=== PATIENT | female | born 1995 | race Caucasian/White ===

== ENCOUNTER 2020-04-30 23:34 | Emergency (ER) | payer OTHER, SELFPAY ==
[2020-04-30 23:39] VITALS: BP 152/81; PULSE 104; RESP 20; TEMP 36.7; O2SAT 100
[2020-05-01] VITALS: O2SAT 98
[2020-05-01 00:44] VITALS: BP 114/55; PULSE 74; RESP 18; O2SAT 100
[2020-05-01] MEDS: IPRATROPIUM BR 0.02% INH SOLN 0.5 MG/2.5 ML VIAL INHALATION (00:45)
[2020-05-01] MEDS: ALBUTEROL SULFATE NEB 2.5 MG/0.5 ML INH 5 MG INHALATION (00:45)
[2020-05-01 00:46] VITALS: PULSE 77; RESP 20
[2020-05-01 00:50] VITALS: PULSE 77; RESP 20
[2020-05-01 01:40] VITALS: BP 116/58; PULSE 88; RESP 12; O2SAT 100
--- NOTE | 2020-05-01 02:07 | ED.ASTHMA ---
HPI - Asthma General Chief Complaint: Asthma Stated Complaint: SOB/Asthma Time Seen by Provider: 05/01/20 00:14 History of Present Illness HPI Narrative: Patient is a 25-year-old female who presents the ER with shortness of breath. Has history of asthma. [place] like her asthma was flaring earlier and she yourself some breathing treatments. Did not fully resolve and she still feels tightness in her central chest. No fevers or chills or sweats. No lower extremity swelling. Patient is 12 weeks . Related Data Allergies Allergy/AdvReac Type Severity Reaction Status Date / Time No Known Allergies Allergy Verified 04/30/20 23:43 Review of Systems Constitutional: Constitutional: Denies chills, Denies fever(s) and Denies weakness ENT: Denies nasal congestion and Denies sore throat Cardiovascular: Cardiovascular: Reports chest pain, Denies rapid heart rate and Denies radiating jaw, neck or arm pain Respiratory: Respiratory: Denies chest congestion, Denies cough, Reports dyspnea and Reports wheezing Genitourinary: Genitourinary: Denies abnormal vaginal bleeding, Denies dysuria and Denies vaginal discharge PMFSH Past Medical History Medical History (Updated 05/01/20 @ 02:15 by Thomas Sanders MD) Allergies Anxiety with depression Asthma Lumbar radiculopathy Migraine Surgical History Surgical History (Updated 05/01/20 @ 02:08 by Thomas Sanders MD) History of section Social History Social History Smoking status: Never smoker Alcohol intake: never Gender identity (if verbalized by the patient): Female Exam Narrative: Exam Narrative: GENERAL: Well-appearing, well-nourished, and in no acute distress. HEAD: Normocephalic, atraumatic. ENT: Mucous membranes moist. CHEST: Very faint wheezing bilaterally but good air movement noted. No respiratory distress. HEART: Tachycardic and regular. No murmur heard. Normal peripheral pulses. EXTREMITIES: Normal range of motion. No edema. NEURO: Alert and oriented x3. PSYCH: Normal mood and affect. Course Course Emergency Course: Symptoms resolved with nebulizer treatment. Discharge home. Vital Signs Vital signs: Vital Signs Temperature 98.1 F 04/30/20 23:39 Pulse Rate 104 H 04/30/20 23:39 Respiratory Rate 20 04/30/20 23:39 Blood Pressure 152/81 H 04/30/20 23:39 Pulse Oximetry 100 04/30/20 23:39 Temperature 98.1 F 04/30/20 23:39 Pulse Rate 88 05/01/20 01:40 Respiratory Rate 12 05/01/20 01:40 Blood Pressure 116/58 L 05/01/20 01:40 Pulse Oximetry 100 05/01/20 01:40 Discharge Plan Discharge Clinical Impression: Asthma with acute exacerbation Patient Disposition: Home, Self-Care Condition: Stable Instructions: Asthma (ED) Additional Instructions: Return the ER if you have fever over 100.4 ?F, you have worsening shortness of breath, you cannot keep down food or water, you have additional concerns. Prescriptions: No Action sertraline [Zoloft] 25 mg tablet 25 mg PO DAILY Qty: 120 RF: 0 hydroxyzine HCl 25 mg tablet 25 mg PO QID PRN (Reason: anxiety) Qty: 60 RF: 0 albuterol sulfate [Ventolin HFA] 90 mcg/actuation HFA aerosol inhaler 2 puff INHALATION Q4-6H PRN (Reason: asthma) Qty: 18 RF: 0 Follow-up/Referrals: Jimmy Summers DO [Primary Care Provider] - 1 Week
[2020-05-01 02:31] VITALS: BP 116/74; PULSE 88; RESP 19; TEMP 36.3; O2SAT 100
== END 2020-05-01 02:32 | disposition home or self-care (01) ==
PROVIDERS: Emergency Provider Emergency Medicine; PCP Internal Medicine
DX: O99.511 Diseases of the respiratory system complicating pregnancy, first trimester (principal); J45.901 Unspecified asthma with (acute) exacerbation; Z3A.12 12 weeks gestation of pregnancy
CPT/HCPCS: 94640; 99283

== ENCOUNTER 2020-06-17 12:39 | Emergency (ER) | payer OTHER, SELFPAY ==
--- NOTE | ~2020-06-17 | US_ITS ---
US venous doppler [facility] DATE: 06/17/2020 15:02 INDICATION: Swelling of the lower extremities. Chest pain. . TECHNIQUE: Real-time and color flow imaging and Doppler analysis of the veins of the lower extremitie s COMPARISON: None FINDINGS: The greater saphenous veins are patent. There is spontaneous and phasic flow and normal aug mentation and color flow signal and normal compression of the deep veins of both legs. An incidental finding is left greater saphenous vein reflux. IMPRESSION: No evidence of deep venous thrombosis of the lower extremities Reviewed, dictated and finalized at [facility]. Reviewed, dictated and finalized at location [facility].
--- NOTE | ~2020-06-17 | XR_ITS ---
EXAMINATION: XR chest 2V DATE: 06/17/2020 14:37 INDICATION: Chest pain TECHNIQUE: PA and lateral views of the chest were obtained. COMPARISON: None FINDINGS: The lungs are clear with no focal airspace opacities, pulmonary edema, pleural effusion or pneumothor ax. The cardiomediastinal silhouette is normal. Mild thoracic kyphosis with mild anterior wedging of a few mid thoracic vertebral bodies and moderate thoracic spondylosis. IMPRESSION: 1. No acute cardiopulmonary disease. Reviewed, dictated and finalized at location [facility].
--- NOTE | 2020-06-17 12:43 | ECG_ITS ---
Measurements Intervals [place] Rate: 85 P: 31 NC: 104 QRS: 6 QRSD: 98 T: -8 QT: 370 QTc: 442 Interpretive Statements SINUS RHYTHM WITH SHORT NC INTERVAL POSSIBLE LEFT ATRIAL ENLARGEMENT INCOMPLETE RIGHT BUNDLE BRANCH BLOCK BORDERLINE ST-T WAVE ABNORMALITY- INFERIOR LEADS BORDERLINE ECG Electronically Signed On 06-17-2020 13:06:49 CDT by Artemio Salomon D.O.
[2020-06-17 12:48] VITALS: BP 133/69; PULSE 88; RESP 20; TEMP 36.7; O2SAT 100
[2020-06-17 13:06] LABS: Basophils Percent Auto 0.3 % (0.2-1.2); Eosinophils Absolute Auto 0.2 K/mm3 (0-0.3); Eosinophils Percent Auto 1.2 % (0-4.4); Hematocrit 38.8 % (37.0-47.0); Hemoglobin 13.2 g/dL (12.0-15.0); Immature Granulocyte Absolute 0.04 K/mm3 (0.00-0.031); Immature Granulocyte Percent A 0.3 % (0-0.5); Lymphocytes Absolute Auto 2.27 K/mm3 (0.9-3.2); Lymphocytes Percent Auto 18.4 % (18.3-44.2); Mean Corpuscular Hemoglobin 30.6 pg (26-34); Mean Corpuscular Volume 89.8 fl (80-100); Mean Platelet Volume 9.8 fl (7.4-10.4); Monocytes Absolute Auto 0.5 K/mm3 (0.1-0.6); Monocytes Percent Auto 3.7 % (2.6-8.5); Neutrophils Absolute Auto 9.4 K/mm3 (1.3-6.7); Neutrophils Percent Auto 76.1 % (45.5-73.1); Platelet Count Result 274 k/mm3 (150-375); Red Blood Count 4.32 M/mm3 (4.2-5.4); Red Cell Distribution Width 13.3 % (11.5-14.5); White Blood Count 12.3 K/mm3 (4.5-10.0)
[2020-06-17 13:15] LABS: Prothrombin Time 12.6 Seconds (11.1-14.7)
[2020-06-17 13:16] LABS: Partial Thromboplastin Time 23.4 SECONDS (22.3-36.8)
[2020-06-17 13:19] LABS: Anion Gap 11 mmol/L (8-16); Blood Urea Nitrogen 5 mg/dL (7-17); Calcium 9.1 mg/dL (8.4-10.2); Carbon Dioxide 23 mmol/L (22-30); Chloride 103 mmol/L (98-107); Estimated CRCL calculation 165 ml/min; Estimated Glomerular Filt Rate > 60; Glucose 83 mg/dL (65-105); Potassium 3.4 mmol/L (3.4-5.0); Sodium 137 mmol/L (137-145)
[2020-06-17 13:20] LABS: Alanine Aminotransferase 15 U/L (4-35); Albumin Level 3.9 g/dL (3.5-5.1); Alkaline Phosphatase 55 U/L (38-126); Aspartate Amino Transferase 19 U/L (14-36); Bilirubin,Total 0.2 mg/dL (0.2-1.3); Lipase 49 U/L (23-300)
[2020-06-17 13:31] LABS: Troponin I < 0.012 ng/mL (0.000-0.034)
[2020-06-17 14:51] LABS: D Dimer 0.47 ug/mL (<0.48)
[2020-06-17 15:21] LABS: Add Urine Microscopic? YES; Appearance Urine Cloudy (Clear); Bacteria Urine Trace /hpf; Bilirubin Urine Negative (Negative); Blood Urine Negative (Negative); Color Urine Yellow (Yellow); Glucose Urine UA Negative (Negative); Ketones Urine Negative (Negative); Leukocyte Esterase Ur 3+ LEU/UL (Negative); Nitrate Urine Negative (Negative); Protein Urine Negative (Negative); Specific Grav Ur 1.008 (1.001-1.035); Squamous Epithelial Cell Urine Many /hpf (Few); Urobilinogen Urine Negative mg/dL (<2.0)
--- NOTE | 2020-06-17 15:31 | ED.CHESTPAIN ---
HPI - Chest Pain General Chief Complaint: Chest Pain Stated Complaint: CP, 19weeks preg Time Seen by Provider: 06/17/20 14:01 Source: patient Mode of arrival: ambulatory Limitations: no limitations History of Present Illness HPI narrative: This is a 25-year-old female that is 19 weeks that presents to the emergency department for chest pain x1 week. Reports it is sharp in nature and has been intermittent. Reports today it is been more constant. Also reports intermittent lower extremity edema that is worsened after she works and is on her feet. Denies fever, cough, or shortness of breath. Related Data Allergies Allergy/AdvReac Type Severity Reaction Status Date / Time No Known Allergies Allergy Verified 04/30/20 23:43 Review of Systems Review of Systems: Narrative: CONSTITUTIONAL: Denies fever ENT: Denies rhinorrhea, congestion, sore throat CARDIOVASCULAR: Reports chest pain, and edema. RESPIRATORY: Denies cough or dyspnea. All systems reviewed & are unremarkable except as noted in HPI and below PMFSH Past Medical History Medical History (Updated 06/17/20 @ 17:09 by Alyssia Menendez PA-C) Allergies Anxiety with depression Asthma Lumbar radiculopathy Migraine Surgical History Surgical History (Updated 05/01/20 @ 02:08 by Thomas Sanders MD) History of section Social History Social History Smoking status: Never smoker Alcohol intake: never Gender identity (if verbalized by the patient): Female Exam Narrative: Exam Narrative: GENERAL: Well-appearing, well-nourished, and in no acute distress. HEAD: Normocephalic, atraumatic. EYES: EOMI. CHEST: Clear to auscultation. No respiratory distress. No wheezes rales or rhonchi. Tender to palpation of the mid anterior chest wall HEART: Regular rate and rhythm. No murmur heard. Normal peripheral pulses. EXTREMITIES: Normal range of motion. No edema. SKIN: Warm, dry, no rash. NEURO: No focal deficits. Alert and oriented x3. PSYCH: Normal mood and affect Course Consultations Consultation #1: Spoke with Dr. Cobos about patient and work-up who will follow-up in clinic Date: 06/17/20 Time: 17:00 Vital Signs Vital signs: Vital Signs Temperature 98.1 F 06/17/20 12:48 Pulse Rate 88 06/17/20 12:48 Respiratory Rate 20 06/17/20 12:48 Blood Pressure 133/69 06/17/20 12:48 Pulse Oximetry 100 06/17/20 12:48 Temperature 98.1 F 06/17/20 12:48 Pulse Rate 68 06/17/20 15:57 Respiratory Rate 13 06/17/20 15:57 Blood Pressure 101/52 L 06/17/20 15:57 Pulse Oximetry 100 06/17/20 15:57 MDM - Chest Pain MDM Narrative Medical decision making narrative: Patient presents to the emergency department for chest pain x1 week. Patient's vitals are normal. Patient is afebrile and nontoxic-appearing. Does have reproducible chest wall tenderness. CBC with mild leukocytosis to 12.3. Metabolic panel without concerning findings. EKG with nonspecific ST changes. Baseline and 3-hour troponin are negative. D-dimer is negative. BNP is mildly elevated to 139. Chest x-ray without acute findings. Bilateral lower extremity venous Doppler without evidence of DVT. Patient with white blood cells and trace bacteria in the urine, also 3+ leuk esterase. Although many squamous epithelial cells. Because patient is I will start her on Macrobid. Spoke with patient's OB about work-up. Patient will follow-up in clinic. Patient is stable and felt appropriate for further outpatient evaluation. She was given warnings to return the ER Lab Data Attestation: I reviewed the patient's lab results. Result diagrams: 06/17/20 12:57 06/17/20 12:57 Labs: Lab Results 06/17/20 06/17/20 06/17/20 Range/Units 12:57 12:57 12:57 WBC 12.3 H (4.5-10.0) K/mm3 RBC 4.32 (4.2-5.4) M/mm3 Hgb 13.2 (12.0-15.0) g/dL Hct 38.8 (37.0-47.0) % MCV 89.8 (80-100) fl MCH 30.6 (26-34) pg MCHC 34.0
[2020-06-17 15:57] VITALS: BP 101/52; PULSE 68; RESP 13; O2SAT 100
[2020-06-17 16:02] LABS: NT Pro B Type Natriuretic Pept 139 PG/ML (5-100)
[2020-06-17 16:36] LABS: Troponin I < 0.012 ng/mL (0.000-0.034)
[2020-06-17 17:22] VITALS: BP 95/65; PULSE 69; RESP 23; TEMP 36.8; O2SAT 100
== END 2020-06-17 17:24 | disposition home or self-care (01) ==
PROVIDERS: Physician Assistant; Emergency Provider Emergency Medicine; PCP Internal Medicine
DX: O99.89 Other specified diseases and conditions complicating pregnancy, childbirth and the puerperium (principal); R07.9 Chest pain, unspecified; F41.9 Anxiety disorder, unspecified; F32.9 Major depressive disorder, single episode, unspecified; J45.909 Unspecified asthma, uncomplicated; Z3A.19 19 weeks gestation of pregnancy
CPT/HCPCS: 36415; 71046; 80048; 80076; 81001; 83690; 83880; 84484; 85025; 85380; 85610; 85730; 87086; 93005; 93970; 96365; 99284; J0131

== ENCOUNTER 2020-07-02 07:38 | Outpatient (CLI) | payer OTHER, SELFPAY ==
--- NOTE | 2020-07-02 | ECHO_ITS ---
Patient Info Name: Makenna Singletary Age: 25 years : 1995 Gender: Female Ht: 62 in Wt: 180 lbs BSA: 1.92 m2 HR: 66 bpm BP: 98 / 68 mmHg Technical Quality: Good Exam Date: 07/02/2020 7:57 AM Exam Location: [facility] Pulmonary Patient Status: Outpatient Admit Date: 07/02/2020 Staff Ordering Physician: Austin Cobos MD Branch Logistics Supervisor: Maribell Paulson RDCS Attending Provider: Austin Cobos MD Referring Physician: Chandrika KEITH; Exam Type: CA echo doppler color flow Study Info Indications R07.9 - Chest pain, unspecified Complete two-dimensional, color flow and Doppler transthoracic echocardiogram is performed. Summary 1. Complete two-dimensional, color flow and Doppler transthoracic echocardiogram is performed. 2. Left ventricular systolic function is normal, estimated at 50-55%. 3. The left ventricular diastolic function is normal. 4. There is trace mitral valve regurgitation. Left Ventricle Left ventricular chamber dimension is normal. Left ventricular systolic function is normal, estimated at 50-55%. There is no increased left ventricular wall thickness. Left ventricular septal wall motion is normal. The left ventricular diastolic function is normal. Right Ventricle Right ventricular chamber dimension is normal. Right ventricular systolic function is normal. Left Atria Left atrial chamber dimension is normal. Right Atria Right atrial chamber dimension is normal. Atrial Septum Intact interatrial septum visualized by color flow imaging. Aortic Valve The aortic valve is trileaflet. There is no aortic valve sclerosis. There is no aortic valve stenosis. There is no aortic valve regurgitation. Pulmonic Valve The pulmonic valve is normal. There is no pulmonic valve stenosis. There is no pulmonic regurgitation. Mitral Valve The mitral valve has normal leaflets. There is no mitral valve stenosis. There is trace mitral valve regurgitation. Tricuspid Valve The tricuspid valve leaflets are normal. There is no significant tricuspid valve stenosis. There is no tricuspid valve regurgitation. Pericardium/Pleural The pericardium appears normal. There is no pericardial effusion. Inferior Vena Cava Normal inferior vena cava with >50% collapse upon inspiration consistent with normal right atrial pressure, 5 mmHg. Aorta The aortic root size at the sinus of Valsalva is normal. The prox ascending aorta size is normal. Left Ventricular Outflow Tract Name Value Normal LVOT 2D LVOT Diameter 2.0 cm LVOT Doppler LVOT Peak Gradient 5 mmHg LVOT Mean Gradient 3 mmHg LVOT VTI 23 cm LVOT VTI/AV VTI Ratio 0.9 LVOT Stroke Volume 71 ml LVOT CO 5.4 l/min LVOT CI 2.8 l/min/m2 Mitral Valve Name Value Normal
== END 2020-07-02 07:39 | disposition home or self-care (01) ==
LOC: ANHCARD 07:40
PROVIDERS: PCP Internal Medicine; Visit Provider Obstetrics & Gynecology
DX: R07.9 Chest pain, unspecified (principal)
CPT/HCPCS: 93306

== ENCOUNTER 2020-08-18 09:16 | Emergency (ER) | payer OTHER, SELFPAY ==
--- NOTE | ~2020-08-18 | XR_ITS ---
EXAMINATION: XR chest 1V portable INDICATION: Shortness of breath and chest pain TECHNIQUE: Portable AP chest at 0950 hours COMPARISON: 06/17/2020 FINDINGS: The lungs are free of acute opacities. There is no pleural effusion or pneumothorax. The ca rdiomediastinal silhouette is normal. The visualized bones and soft tissues are unremarkable. IMPRESSION: 1. No acute cardiopulmonary abnormality. Reviewed, dictated and finalized at location [facility].
[2020-08-18 09:22] VITALS: BP 117/74; PULSE 89; RESP 18; TEMP 36.4; O2SAT 100
[2020-08-18 09:32] VITALS: PULSE 101; RESP 14; O2SAT 100
[2020-08-18 09:45] VITALS: PULSE 96; RESP 16; O2SAT 100
[2020-08-18 10:03] VITALS: PULSE 95; RESP 14; O2SAT 100
[2020-08-18 10:15] VITALS: PULSE 90; RESP 21
--- NOTE | 2020-08-18 10:46 | ED.GENADULT ---
HPI - General Adult General Chief complaint: Unspecified Stated complaint: 28 weeks preg. 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 Tse patient denies vaginal bleeding discharge or any abdominal or pelvic pain. Patient on arrival in no distress resting comfortably in the room Related Data Allergies Allergy/AdvReac Type Severity Reaction Status Date / Time No Known Allergies Allergy Verified 04/30/20 23:43 Review of Systems Review of Systems: All systems reviewed & are unremarkable except as noted in HPI and below PMFSH Past Medical History Medical History Allergies Anxiety with depression Asthma Lumbar radiculopathy Migraine Surgical History Surgical History History of section Social History Social History Smoking status: Never smoker Alcohol intake: never Gender identity (if verbalized by the patient): Female Exam Narrative: Exam Narrative: GENERAL: Well-appearing, well-nourished, and in no acute distress. HEAD: Normocephalic, atraumatic. EYES: PERRLA and EOMI. ENT: Nares clear, no rhinorrhea or epistaxis. Mucous membranes moist. CHEST: Clear to auscultation. No respiratory distress. No wheezes rales or rhonchi HEART: Regular rate and rhythm. No murmur heard. Normal peripheral pulses. ABDOMEN: Soft, nontender, distended EXTREMITIES: Normal range of motion. No edema. SKIN: Warm, dry, no rash. NEURO: No focal deficits. Alert and oriented x3. PSYCH: Normal mood and affect. Course Course Emergency Course: Patient in the room in no distress aware of his findings treatment plan and diagnosis normal vital signs no pneumonia seen on exam felt appropriate for outpatient reevaluation Vital Signs Vital signs: Vital Signs Temperature 97.5 F L 08/18/20 09:22 Pulse Rate 89 08/18/20 09:22 Respiratory Rate 18 08/18/20 09:22 Blood Pressure 117/74 08/18/20 09:22 Pulse Oximetry 100 08/18/20 09:22 Temperature 97.5 F L 08/18/20 09:22 Pulse Rate 89 08/18/20 09:22 Respiratory Rate 18 08/18/20 09:22 Blood Pressure 117/74 08/18/20 09:22 Pulse Oximetry 100 08/18/20 09:22 Medical Decision Making MDM Narrative Medical decision making narrative: Patient with upper respiratory infection swab for COVID-19 no pneumonia on chest x-ray normal vital signs will be discharged home advised to self quarantine given reasons to return felt appropriate for outpatient reevaluation Vital Signs Vital Signs: Vital Signs Temperature 97.5 F L 08/18/20 09:22 Pulse Rate 89 08/18/20 09:22 Respiratory Rate 18 08/18/20 09:22 Blood Pressure 117/74 08/18/20 09:22 Pulse Oximetry 100 08/18/20 09:22 Temperature 97.5 F L 08/18/20 09:22 Pulse Rate 89 08/18/20 09:22 Respiratory Rate 18 08/18/20 09:22 Blood Pressure 117/74 08/18/20 09:22 Pulse Oximetry 100 08/18/20 09:22 Lab Data Labs: Lab Results 08/18/20 Range/Units 09:36 SARS-CoV-2 RNA (RT-PCR) Pending Discharge Plan Discharge Clinical Impression: Acute upper respiratory infection Patient Disposition: Home, Self-Care Condition: Stable Instructions: Antibiotic Form, COVID-19 (Coronavirus Disease 2019) (ED) Additional Instructions: Follow up with your primary care provider within 1-2 days to set up for reevaluation and discussion of your COVID-19 results. Go to ER for shortness of breath, difficulty breathing, chest pain,
[2020-08-18 11:02] VITALS: BP 137/74; PULSE 89; RESP 18; O2SAT 98
[2020-08-18 19:01] LABS: SARS-CoV-2 RNA PCR Positive
== END 2020-08-18 11:03 | disposition home or self-care (01) ==
PROVIDERS: Emergency Medicine Emergency Medical Services; Emergency Provider Emergency Medicine; PCP Internal Medicine
DX: O98.513 Other viral diseases complicating pregnancy, third trimester (principal); U07.1 COVID-19; Z3A.28 28 weeks gestation of pregnancy
CPT/HCPCS: 71045; 87635; 99283; C9803; U0003

== ENCOUNTER 2020-10-12 15:02 | Observation (INO) | payer OTHER, SELFPAY ==
[2020-10-12] VITALS (9 sets, daily range): BP systolic 112–122; BP diastolic 66–67; PULSE 79–88; O2SAT 97–100
--- NOTE | 2020-10-12 15:46 | OBADM ---
This patient, Makenna Singletary, admitted to the OB room OB Post 116 for observation. Patient/family oriented to hospital policies and general routines including ID bracelet, bed and alarms, visiting hours, pain management, procedures, bathroom and other care routines, personal items, smoking policy, room service/diet, and visiting hours. Patient/Family are encouraged to report perceived risks to care and to ask questions if they do not understand what they are told or what they should do.
--- NOTE | 2020-10-12 16:10 | PC.NURSE ---
9830- Spoke with Dr. Benjamin, vitals reveiwed. Patient complaint of increased pulse and chest tightness. No tests ordered at this time. Orders to discharge to home, if patient becomes more symptomatic or chest tightness increases, patient to go to ER. Patient agreeable with the plan, states she is feeling better.
--- NOTE | 2020-10-15 07:51 | PM.OBTRLD ---
OB - Triage/Final Diagnosis Visit Information Reason for evaluation: other (heart racing)
== END 2020-10-12 16:00 | disposition home or self-care (01) ==
PROVIDERS: Admitting Provider Obstetrics & Gynecology Gynecology; PCP Internal Medicine; Visit Provider Obstetrics & Gynecology Gynecology
DX: O26.893 Other specified pregnancy related conditions, third trimester (principal); R00.0 Tachycardia, unspecified; Z3A.35 35 weeks gestation of pregnancy
CPT/HCPCS: 59025; G0378; G0379

== ENCOUNTER 2020-10-23 16:49 | Outpatient (CLI) | payer OTHER, SELFPAY ==
--- NOTE | ~2020-10-23 | US_ITS ---
EXAMINATION: US OB >= 14 weeks Fetus EXAM DATE: 10/23/2020 17:19 INDICATION: Check amniotic fluid index, size. 3rd trimester. TECHNIQUE: Pelvic obstetrical transabdominal sonogram was performed by a technologist. There are mu ltiple grayscale and Doppler images available for interpretation. There are no earlier studies of th is gestation for comparison. FINDINGS: There is a single fetus identified in vertex presentation with a heart rate of 154 beats pe r minute. The placenta is located in the anterior fundal position. There is no sonographic evidence of retroplacental hemorrhage identified. AMNIOTIC FLUID INDEX Quadrant 1: 1.4 cm Quadrant 2: 3.2 cm Quadrant 3: 1.1 cm Quadrant 4: 1.4 cm Amniotic fluid index: 7.1 cm. (The 5th -- 95th percentile range is 7.5-24.4). BIOMETRIC DATA: Biparietal diameter (BPD): 8.5cm ----------------> 34 weeks 0 days. Head circumference (HC): 31.7 cm ----------------> 35 weeks 5 days. Abdominal circumference (AC): 31.3 cm ----------> 35 weeks 2 days. Femur length (FL): 6.6 cm --------------------------> 33 weeks 6 days. These measurements are concordant. HC/AC ratio is 1.01 (The 5th -- 95th percentile range is 0.93-1.11. Estimated weight is 2517 g +/- 377 g. This is the 7th percentile when the currently reported c linical gestation age 37 weeks 2 days, clinical estimated date of delivery (MELISSA-OPE) 11/11 is used. Fet al estimated gestational age based on measurements from this exam is 34 weeks 5 days, with an estimat ed date of delivery (MELISSA-AUA) 11/29. IMPRESSION: 1. Single fetus in vertex presentation with heart rate 154 beats per minute. 2. Estimated weight of 2517 grams, 7th percentile using the currently reported clinical gestat ion age of 37 weeks 2 days, MELISSA(OPE) 11/11. 3. Oligohydramnios, MARILEE 7.1 cm. Reviewed, dictated and finalized at location A. D MECHANICAL METER TESTER IMPRESSION: 1. Single fetus in vertex presentation with heart rate 154 beats per minute. 2. Estimated weight of 2517 grams, 7th percentile using the currently re ported clinical gestation age of 37 weeks 2 days, MELISSA(OPE) 11/11. 3. Oligohydramnios, MARILEE 7.1 cm.
== END 2020-10-23 16:50 | disposition home or self-care (01) ==
PROVIDERS: PCP Internal Medicine; Visit Provider Nurse Practitioner
DX: O36.5933 Maternal care for other known or suspected poor fetal growth, third trimester, fetus 3 (principal); O41.03X0 Oligohydramnios, third trimester, not applicable or unspecified; Z3A.37 37 weeks gestation of pregnancy
CPT/HCPCS: 76805

== ENCOUNTER 2020-10-23 22:00 | Observation (INO) | payer OTHER, SELFPAY ==
--- NOTE | ~2020-10-23 | US_ITS ---
. EXAMINATION: US OB limited DATE: 10/24/2020 07:39 INDICATION: Oligohydramnios. Third trimester. TECHNIQUE: Real-time ultrasound of the pelvis was performed. COMPARISON: Ultrasound 10/23/2020 FINDINGS: There is a single fetus in vertex presentation. The placenta is anterior. heart rate is 122 be ats per minute (bpm). The amniotic fluid index is 8.6 cm, which is normal. IMPRESSION: 1. Single living fetus in vertex presentation. 2. Normal amniotic fluid index. Reviewed, dictated and finalized at location A. EL LATHE OPERATOR
[2020-10-23 19:06] VITALS: BP 115/75; PULSE 80
[2020-10-23 21:46] VITALS: BP 121/77; PULSE 83
[2020-10-23 22:00] VITALS: TEMP 36.4
[2020-10-23 23:00] VITALS: BMI 35.9
--- NOTE | 2020-10-24 00:23 | OBADM ---
This patient, Makenna Singletary, admitted to the OB room for observation. Patient/family oriented to hospital policies and general routines including ID bracelet, bed and alarms, visiting hours, pain management, procedures, bathroom and other care routines, personal items, smoking policy, room service/diet, and visiting hours. Patient/Family are encouraged to report perceived risks to care and to ask questions if they do not understand what they are told or what they should do.
--- NOTE | 2020-10-24 01:00 | PC.NURSE ---
no ctx per toco between [id number]
--- NOTE | 2020-10-24 02:00 | PC.NURSE ---
no ctx per toco between [id number]
--- NOTE | 2020-10-24 03:00 | PC.NURSE ---
no ctx per toco between [id number]
--- NOTE | 2020-10-24 04:00 | PC.NURSE ---
no ctx per toco between [id number]
--- NOTE | 2020-10-24 05:00 | PC.NURSE ---
no ctx per toco from [id number]
--- NOTE | 2020-10-24 06:00 | PC.NURSE ---
occasional ctx noted between 0500 and 0600. pt sleeping.
[2020-10-24 06:57] VITALS: BP 115/73; PULSE 71
[2020-10-24 12:46] VITALS: BP 113/61; PULSE 76
--- NOTE | 2020-11-04 13:02 | PM.OBTRLD ---
OB - Triage/Final Diagnosis Final Diagnosis (1) Oligohydramnios antepartum: Code(s): O41.00X0 - Oligohydramnios, unspecified trimester, not applicable or unspecified Status: Acute
== END 2020-10-24 12:55 | disposition home or self-care (01) ==
PROVIDERS: Admitting Provider Obstetrics & Gynecology; PCP Internal Medicine; Visit Provider Obstetrics & Gynecology
DX: O41.00X0 Oligohydramnios, unspecified trimester, not applicable or unspecified (principal); Z3A.00 Weeks of gestation of pregnancy not specified
CPT/HCPCS: 59025; 76805; 76815; 84112; G0378; G0379

== ENCOUNTER 2020-10-26 13:57 | Observation (INO) | payer OTHER, SELFPAY ==
--- NOTE | ~2020-10-26 | US_ITS ---
EXAMINATION: US OB limited w BPP DATE: 10/26/2020 15:56 INDICATION: Decreased movement. Oligohydramnios. Third trimester. TECHNIQUE: Real-time pelvic ultrasound was performed. COMPARISON: Ultrasound 10/24/2020 FINDINGS: There is a single living fetus in vertex presentation. The placenta is anterior. heart rate is 149 beats per minute (bpm). The amniotic fluid index is 9.6 cm which is normal. Biophysical profile performed by the technologist: breathing (30 sec sustained breathing in 30 minutes): 2 out of 2 movement (3 gross body movements in 30 minutes): 2 out of 2 tone (one episode of ksxiewk-[id number] limb movement): 2 out of 2 Amniotic fluid pocket (2 cm): 2 out of 2 Total score: 8 out of 8 IMPRESSION: 1. Single living fetus in vertex presentation. 2. Biophysical profile 8 out of 8. Reviewed, dictated and finalized at location A. TALIZER OPERATOR
[2020-10-26 15:26] VITALS: TEMP 36.6
--- NOTE | 2020-10-26 15:43 | OBADM ---
This patient, Makenna Singletary, admitted to the OB room Labor/Delivery/Recovery 106 for observation. Patient/family oriented to hospital policies and general routines including ID bracelet, bed and alarms, visiting hours, pain management, procedures, bathroom and other care routines, personal items, smoking policy, room service/diet, and visiting hours. Patient/Family are encouraged to report perceived risks to care and to ask questions if they do not understand what they are told or what they should do.
--- NOTE | 2020-10-26 16:04 | PC.NURSE ---
1602--Reported BPP 06/13 [address] MARILEE [address] Benjamin.DC orders given.
--- NOTE | 2020-11-03 16:36 | PM.OBTRLD ---
OB - Triage/Final Diagnosis Visit Information Reason for evaluation: other (leaking fluid per vagina)
== END 2020-10-26 16:11 | disposition home or self-care (01) ==
LOC: ANHLDR 15:17
PROVIDERS: Admitting Provider Obstetrics & Gynecology Gynecology; PCP Internal Medicine; Visit Provider Obstetrics & Gynecology Gynecology
DX: O42.12 Full-term premature rupture of membranes, onset of labor more than 24 hours following rupture (principal); Z3A.00 Weeks of gestation of pregnancy not specified
CPT/HCPCS: 76815; 76819; G0378; G0379

== ENCOUNTER 2020-10-29 13:23 | Inpatient (IN) | payer OTHER, SELFPAY ==
--- NOTE | 2020-10-10 16:04 | PC.NURSE ---
VERIFIED WITH OR SCHEDULE AND PATIENT--C/S ON 11/05/20 AT 0730 WITH TUBAL LIGATION PATIENT GIVEN REQUISITION FOR PRE-OP LAB DRAW ON 11/04/20
[2020-10-29] VITALS (40 sets, daily range): BP systolic 94–122; BP diastolic 45–76; PULSE 59–82; RESP 12–16; TEMP 36.6–37.3; O2SAT 96–100; BMI 37.0
--- NOTE | 2020-10-29 13:58 | LDADM ---
This patient, Makenna Singletary, was admitted to Labor/Delivery/Recovery 120 on 10/29/20 at 13:23. Plans for labor, pain management and were discussed with patient. Patient/family oriented to hospital policies and general routines including ID bracelet, bed and alarms, visiting hours, pain management, procedures, bathroom and other care routines, personal items, smoking policy, room service/diet and guest tray routines, infant security routines, and visiting hours. Patient/Family are encouraged to report perceived risks to care and to ask questions if they do not understand what they are told or what they should do. See OBIX for further documentation.
[2020-10-29] MEDS: LACTATED RINGERS 1,000 ML 125 ML IV CONT (14:08)
[2020-10-29 14:18] LABS: Basophils Percent Auto 0.2 % (0.2-1.2); Eosinophils Absolute Auto 0.1 K/mm3 (0-0.3); Eosinophils Percent Auto 0.6 % (0-4.4); Hematocrit 40.1 % (37.0-47.0); Immature Granulocyte Absolute 0.07 K/mm3 (0.00-0.031); Immature Granulocyte Percent A 0.5 % (0-0.5); Lymphocytes Absolute Auto 2.24 K/mm3 (0.9-3.2); Lymphocytes Percent Auto 15.3 % (18.3-44.2); Mean Corpuscular HGB Conc 34.9 g/dl (32-36); Mean Corpuscular Hemoglobin 30.2 pg (26-34); Mean Corpuscular Volume 86.6 fl (80-100); Mean Platelet Volume 9.5 fl (7.4-10.4); Monocytes Absolute Auto 0.7 K/mm3 (0.1-0.6); Monocytes Percent Auto 4.9 % (2.6-8.5); Neutrophils Absolute Auto 11.5 K/mm3 (1.3-6.7); Neutrophils Percent Auto 78.5 % (45.5-73.1); Platelet Count Result 263 k/mm3 (150-375); Red Blood Count 4.63 M/mm3 (4.2-5.4); Red Cell Distribution Width 13.4 % (11.5-14.5); White Blood Count 14.6 K/mm3 (4.5-10.0)
--- NOTE | 2020-10-29 15:02 | WPDANESEPPF ---
Anes - Initial Pre Proc Eval Procedure: Operation Date: 11/05/20 07:30 Proposed Procedures p Repeat Section, Bilateral Tubal Ligation With Fallopian Rings - Yu Benjamin MD Date/Time: 10/29/20 15:02 Surgeon: Yu Benjamin MD Pre Op Diagnosis: SROM Patient Data Age: 25 Gender: F Height: 1.57 m Weight: 92 kg Last Vital Signs Pulse 80 10/29/20 14:36 BP 122/70 10/29/20 14:36 Allergies Allergy/AdvReac Type Severity Reaction Status Date / Time No Known Allergies Allergy Verified 10/29/20 14:03 Home Medications Medication Instructions Recorded Confirmed Type albuterol sulfate 2 puff INHALATION QID PRN #6.7 g 08/18/20 Rx albuterol sulfate 2.5 mg INHALATION Q4-6H PRN #90 ml 08/19/20 08/19/20 Rx prenat.vits,erika,[id number] 1 tablet PO DAILY 08/19/20 10/24/20 History Laboratory Tests 10/29/20 10/29/20 14:11 14:11 WBC 14.6 K/mm3 H K/mm3 (4.5-10.0) RBC 4.63 M/mm3 M/mm3 (4.2-5.4) Hgb 14.0 g/dL g/dL (12.0-15.0) Hct 40.1 % % (37.0-47.0) MCV 86.6 fl fl (80-100) MCH 30.2 pg pg (26-34) MCHC 34.9 g/dl g/dl (32-36) RDW 13.4 % % (11.5-14.5) Plt Count 263 k/mm3 k/mm3 (150-375) MPV 9.5 fl fl (7.4-10.4) Immature Gran % (Auto) 0.5 % % (0-0.5) Neut % (Auto) 78.5 % H % (45.5-73.1) Lymph % (Auto) 15.3 % L % (18.3-44.2) [place] % (Auto) 4.9 % % (2.6-8.5) Eos % (Auto) 0.6 % % (0-4.4) Baso % (Auto) 0.2 % % (0.2-1.2) Lymph # (Auto) 2.24 K/mm3 K/mm3 (0.9-3.2) [place] # (Auto) 0.7 K/mm3 H K/mm3 (0.1-0.6) Eos # (Auto) 0.1 K/mm3 K/mm3 (0-0.3) Baso # (Auto) 0.0 K/mm3 K/mm3 (0.0-0.1) Abs Immat Gran (auto) 0.07 K/mm3 H K/mm3 (0.00-0.031) Absolute Neuts (auto) 11.5 K/mm3 H K/mm3 (1.3-6.7) Absolute Nucleated RBC 0.0 K/mm3 K/mm3 (0.0-0.012) Nucleated RBC % 0.0 % % (0.0-0.2) RPR Pending Patient hx anesthesia problems: none Family hx anesthesia problems: none [facility] Past Medical History Medical History Allergies Anxiety with depression Asthma Lumbar radiculopathy Migraine Surgical History Surgical History History of section Family History Family History (Updated 10/10/20 @ 15:40 by Louis Baker RN) Father Asthma Sibling Asthma Mother Hypertension High cholesterol Grandparent Hypertension Acute myocardial infarction High cholesterol Social History Social History Smoking status: Never smoker Alcohol intake: never Substance use: never Gender identity (if verbalized by the patient): Female Spiritual care concerns: No Anes - Eval Final PreProcedure Day of Procedure 10/29/20 15:02 Patient weight: obese Heart: regular rate and rhythm Lungs: clear to auscultation and normal air movement Airway: Mallampati scale class II Neurological: alert and oriented Last oral intake: >/= 8 hours ASA classification: III Emergent: no Anesthetic plan: proceed Anesthesia type and monitoring: regional spinal Informed Consent: The patient's anesthetic plan and its attendant risks and benefits were discussed with the patient/family/POA. Questions were solicited and answers provided to the satisfaction of the patient/family/POA.
--- NOTE | 2020-10-29 15:13 | P.HP_ITS ---
H&P: HPI History of Present Illness Date/Time: 10/29/20 15:13 Chief Complaint: leaking fluid Narrative: Makenna Singletary is a 25 year old female @ [address] Benjamin pressented with rupture of membranes. Patient complicated by prior csection. [facility] Past Medical History Medical History Allergies Anxiety with depression Asthma Lumbar radiculopathy Migraine Surgical History Surgical History History of section Family History Family History Father Asthma Sibling Asthma Mother Hypertension High cholesterol Grandparent Hypertension Acute myocardial infarction High cholesterol Social History Social History Smoking status: Never smoker Alcohol intake: never Substance use: never Gender identity (if verbalized by the patient): Female Spiritual care concerns: No Meds Home Medications and Allergies Home Medications Medication Instructions Recorded Confirmed Type albuterol sulfate 2 puff INHALATION QID PRN #6.7 g 08/18/20 Rx albuterol sulfate 2.5 mg INHALATION Q4-6H PRN #90 ml 08/19/20 08/19/20 Rx prenat.vits,erika,[id number] 1 tablet PO DAILY 08/19/20 10/24/20 History Allergies Allergy/AdvReac Type Severity Reaction Status Date / Time No Known Allergies Allergy Verified 10/29/20 14:03 Vital Signs Vital Signs - 24 hr 10/29/20 13:42 10/29/20 14:36 Pulse Rate 81 80 Blood Pressure 122/72 122/70 Exam Const: General: cooperative and comfortable Resp: Effort & Inspection: normal respiratory effort GI: Other: fundus gravid nontender movemnt H&P: Results Labs Labs: Short CBC 10/29/20 Range/Units 14:11 WBC 14.6 H (4.5-10.0) K/mm3 Hgb 14.0 (12.0-15.0) g/dL Hct 40.1 (37.0-47.0) % Plt Count 263 (150-375) k/mm3 Assessment and Plan Assessment and plan (1) SROM (spontaneous rupture of membranes): Status: Acute (2) Delivery with history of : Code(s): O34.219 - Maternal care for unspecified type scar from previous delivery Status: Acute Assessment and Plan: plan repeat csection with risk and benefits reviewed with patient in detail including bleeding, infection, trauma and damage to surrounding organs.
[2020-10-29] MEDS: ceFAZolin 2 GM/D5W 50 ML 2 GM/50 ML BAG IVPB (15:15)
--- NOTE | 2020-10-29 16:05 | P.OP_ITS ---
Procedure Note - Detailed Date of procedure: 10/29/20 Pre-op diagnosis: SROM prior csection Desires sterilization Post-op diagnosis: same Procedure performed: Repeat csection with bilateral tubal ligation Description of procedure: Patient was taken to the operating room with IV running. She was prepared and draped in a normal sterile fashion and placed in supine position with a leftward tilt. A Pfannenstiel skin incision was made with a scalpel carried down to underlying layer of fascia. This fascia incision was then extended bilaterally with Garcia scissors. The superior aspect of the incision was grasped Jigar was elevated off the rectus muscle. Attention was then turned to the inferior aspect of the incision which was grasped with Jigar clamps and elevated off the rectus muscles. Rectus muscles were in the midline and peritoneum was entered bluntly bladder blade was inserted. This ago uterine peritoneum was grasped with pickups and entered sharply with Metzenbaum scissors and bladder flap was created sharply and digitally. Bladder blade was reinserted the lower uterine segment was then incised in a transverse fashion with a 1 incision able to reach the amniotic sac. The incision was extended bluntly the fetus was delivered atraumatically . umbilical cord was cut and cord bloods obtained cord gases were obtained placenta then was delivered spontaneously. Uterus was exteriorized and cleared of all clots and debris the uterine incision was then closed with 0 Monocryl in a running locked fashion. Hemostasis was noted. Attention was then turned to the scalp thinks the right fallopian tube was grasped with [place]'s transected and suture ligated with 0 chromic the same procedure was performed performed on the left tube was grasped transfixing suture observed ligated with 0 chromic. Uterus was returned to the abdomen and the gutters were cleared of all clots debris the abdomen was irrigated. And the fascia and muscles were examined for hemostasis the fascia was closed with 0 Vicryl in a running fashion. The subcutaneous tissue was irrigated and closed with 3 0 plain gut. And the skin was closed with 4 Vicryl on a Remington needle sponge lap and needle counts were correct x2 the patient received 2 g Ancef at skin incision. Anesthesia: spinal Surgeon: Shahzad Nj MD Estimated blood loss (mL): 350 Urine output (mL): 200 Drains: Yes Packing: No Pathology: yes Complications: None Condition: stable Disposition: PACU Findings: thin lower uterine segment
--- NOTE | 2020-10-29 16:14 | P.PCNOB_ITS ---
OB - Delivery Note Procedure Delivery date: 10/29/20 Procedure: Procedures Operation Date: 11/05/20 07:30 <No data on this case meets the specified criteria> events: Previous and Oligohydramnios Intrapartal events: None Quantitative Blood Loss (ml): 350 Anesthesia type: Spinal Disposition: PACU [place] Baby Date of : 10/29/20 Time of : 15:38 Weeks of gestation at delivery: 38 gender: Male Weight (pounds): 5 Weight (ounces): 9 presentation: vertex position: Left Occiput Anterior Placenta delivery description: Spontaneous cord vessel description: 3 Vessels and Clamped/Cut score one minute: 8 score five minutes: 9
[2020-10-29] MEDS: LACTATED RINGERS 1,000 ML 999 ML IV CONT (16:30)
[2020-10-29] MEDS: OXYTOCIN 30 UNITS/NS 500 ML 30 UNITS/500 ML BAG 125 UNITS IV CONT (17:29)
--- NOTE | 2020-10-29 18:15 | SUR.PHASEI ---
Pt resting quietly. Has baby to breast. Assisted with latch. Monitor NSR. Resp even and non labored. Abdomen soft, tender to palpation. Fundus firm at U/1. Neely draining clear yellow urine. SCD's in place. Pt moving both legs. Reports nausea. No vomiting. Will give Zofran and Toradol as ordered.
[2020-10-29] MEDS: KETOROLAC 30 MG/ML VIAL (*BKC) IV PUSH (18:25)
[2020-10-29] MEDS: ONDANSETRON INJ 4 MG/2 ML VIAL IV PUSH (18:26)
--- NOTE | 2020-10-29 18:57 | OBPPTRN ---
Patient transferred to post room #282 via stretcher. Support person, Jimmy, present. Oriented to unit, room, information board, rooming in, admission packet and security measures. Patient verbalizes understanding.
--- NOTE | 2020-10-29 21:00 | PC.NURSE ---
Breast pump provided due to maternal request and mother with left nipple that is more flat than right and retracts with positioning. Mother was offered a shield and declined at this time. Instructions given on breast pump care and usage, pumping schedule, nipple care, and collection and storage of breast milk. Encouraged [id number], breast massage and manual expression to stimulate supply. Pumping log provided and reviewed. Assessed patient for correct flange size, placement and draw. Patient verbalizes and demonstrates understanding of instructions.
[2020-10-29] MEDS: DEXTROSE 5%/0.45% SOD CHL 1,000 ML 125 ML IV CONT (21:29)
[2020-10-30] VITALS: BP 105/63; PULSE 72; RESP 14; TEMP 36.6; O2SAT 98
[2020-10-30] MEDS: KETOROLAC 30 MG/ML VIAL (*BKC) IV PUSH (00:37)
--- NOTE | 2020-10-30 01:24 | PC.NURSE ---
Assisted mother with . Pt has a very shallow/flat nipple on left. Pt brought her own nipple everter and declines attempting to use a nipple shield at this time. Infant was able to latch to left breast after using everter a few times to protrude nipple, however unlatched after only a few sucks. Multiple attempts made resulting in the same outcome of only a few sucks each time. Hand expressed colostrum bilaterally and pt continues to pump after feedings. Infant latches well on right breast.
[2020-10-30 04:15] VITALS: BP 102/66; PULSE 70; RESP 16; TEMP 36.4; O2SAT 99
[2020-10-30] MEDS: HYDROcodone/acetaminophen (*CRX) 10-325 MG TABLET 1 TAB PO ×2 (04:36→07:40)
[2020-10-30] MEDS: IBUPROFEN 600 MG TABLET PO ×3 (04:37→18:54)
[2020-10-30 05:47] LABS: Basophils Percent Auto 0.3 % (0.2-1.2); Eosinophils Absolute Auto 0.1 K/mm3 (0-0.3); Eosinophils Percent Auto 0.9 % (0-4.4); Hematocrit 35.9 % (37.0-47.0); Hemoglobin 12.3 g/dL (12.0-15.0); Immature Granulocyte Absolute 0.06 K/mm3 (0.00-0.031); Immature Granulocyte Percent A 0.4 % (0-0.5); Lymphocytes Absolute Auto 2.22 K/mm3 (0.9-3.2); Lymphocytes Percent Auto 16.6 % (18.3-44.2); Mean Corpuscular HGB Conc 34.3 g/dl (32-36); Mean Corpuscular Hemoglobin 30.3 pg (26-34); Mean Corpuscular Volume 88.4 fl (80-100); Mean Platelet Volume 9.6 fl (7.4-10.4); Monocytes Absolute Auto 0.7 K/mm3 (0.1-0.6); Monocytes Percent Auto 5.2 % (2.6-8.5); Neutrophils Absolute Auto 10.2 K/mm3 (1.3-6.7); Neutrophils Percent Auto 76.6 % (45.5-73.1); Platelet Count Result 208 k/mm3 (150-375); Red Blood Count 4.06 M/mm3 (4.2-5.4); Red Cell Distribution Width 13.5 % (11.5-14.5); White Blood Count 13.4 K/mm3 (4.5-10.0)
[2020-10-30] MEDS: MULTIVIT/MIN/PREN/FOL AC/IRON TABLET 1 TAB PO (07:41)
[2020-10-30] MEDS: DOCUSATE SODIUM 100 MG CAPSULE PO ×2 (07:41→14:59)
[2020-10-30 08:20] VITALS: BP 98/63; PULSE 62; RESP 18; TEMP 36.7; O2SAT 99
--- NOTE | 2020-10-30 08:33 | WPDANLDPN2 ---
Anes-Prog Note L&D Date/Time: 10/30/20 08:33 Comfortable throughout: section Neuraxial method: spinal Epidural/Spinal procedure site: clean & non-tender Neuro status: Neuro function grossly intact. Cardiovascular status: normal Respiratory status: normal Airway patency: baseline Mental status: baseline Post-Op hydration status: normal Vital Signs: Last Vital Signs Temp 36.4 C 10/30/20 04:15 Pulse 70 10/30/20 04:15 Resp 16 10/30/20 04:15 BP 102/66 10/30/20 04:15 Pulse Ox 99 10/30/20 04:15 Pain score (VAS): 0/10. Patient resting in bed at time of assessment, appears comfortable. Support person at bedside. PCT at bedside. I/O: Intake & Output 10/29/20 10/30/20 10/30/20 23:59 07:59 15:59 Intake Total 1000 900 Output Total 565 1975 Balance 435 -1075 Post-procedural complaints: none Patient feedback: Patient satisfied with anesthetic care.
--- NOTE | 2020-10-30 08:33 | WPDANLDNPN2 ---
Anes-Prog Note L&D-Neuraxial Date/Time: 10/30/20 08:33 Neuraxial medications: intrathecal PF morphine Opiod-related complaints: none Patient feedback: Patient satisfied with post-operative pain management.
[2020-10-30 12:30] VITALS: BP 105/61; PULSE 66; RESP 18; TEMP 36.4; O2SAT 99
--- NOTE | 2020-10-30 14:38 | PM.OBPNVD ---
OB - PN: Subj Subjective Date/time seen: 10/30/20 14:39 Doing well no complaints pain controlled desires home tomorrow OB - PN: Obj Data Labs CBC & Chem 7: 10/30/20 05:18 Labs: Laboratory Results - last 24 hr 10/29/20 10/30/20 14:11 05:18 WBC 13.4 H RBC 4.06 L Hgb 12.3 Hct 35.9 L MCV 88.4 MCH 30.3 MCHC 34.3 RDW 13.5 Plt Count 208 MPV 9.6 Immature Gran % (Auto) 0.4 Neut % (Auto) 76.6 H Lymph % (Auto) 16.6 L [place] % (Auto) 5.2 Eos % (Auto) 0.9 Baso % (Auto) 0.3 Lymph # (Auto) 2.22 [place] # (Auto) 0.7 H Eos # (Auto) 0.1 Baso # (Auto) 0.0 Abs Immat Gran (auto) 0.06 H Absolute Neuts (auto) 10.2 H Absolute Nucleated RBC 0.0 Nucleated RBC % 0.0 Blood Type O Positive Antibody Screen Negative OB - PN A/P Assessment and Plan (1) Delivery with history of : Code(s): O34.219 - Maternal care for unspecified type scar from previous delivery Status: Acute (2) Single delivery by : Code(s): O82 - Encounter for delivery without indication Status: Acute Assessment and Plan: continue with pp care. Time Spent With Patient Time: Total time spent is greater than 50% in coordination of care (as documented) at patient's floor/unit and/or counseling patient: Exam GI: Other: incision clean and dry uterus less than 6 weeks
[2020-10-30] MEDS: HYDROcodone/acetaminophen (*CRX) 5-325 MG TABLET 1 TAB PO ×3 (14:59→22:56)
[2020-10-30 18:55] VITALS: BP 104/63; PULSE 70; RESP 18; TEMP 36.8; O2SAT 98
--- NOTE | 2020-10-30 23:27 | PC.NURSE ---
Patient to view the discharge video Mother & Baby Care, The First Two Weeks online. Patient was given the opportunity and encouraged to ask questions. Patient verbalized understanding of information shared and has been given the mother/baby guide for home reference.
[2020-10-31] MEDS: IBUPROFEN 600 MG TABLET PO (00:27)
[2020-10-31] MEDS: HYDROcodone/acetaminophen (*CRX) 5-325 MG TABLET 1 TAB PO (02:18)
[2020-10-31 07:09] VITALS: BP 112/60; PULSE 68; RESP 18; TEMP 36.7
--- NOTE | 2020-10-31 09:41 | PM.OBPNVD ---
OB - PN: Subj Subjective Date/time seen: 10/31/20 09:41 Doing well desires home pain controlled with prn medications OB - PN: Obj Data Labs CBC & Chem 7: 10/30/20 05:18 OB - PN A/P Assessment and Plan (1) Delivery with history of : Code(s): O34.219 - Maternal care for unspecified type scar from previous delivery Status: Acute Assessment and Plan: desires home today will d/c home with follow up in [address] Benjamin. Time Spent With Patient Time: Total time spent is greater than 50% in coordination of care (as documented) at patient's floor/unit and/or counseling patient: Exam Narrative: Exam Narrative: c/d/i incision and fundus below umbilicus
[2020-11-02 11:29] VITALS: BP 114/67; PULSE 67; RESP 20; TEMP 36.7; O2SAT 98
[2020-11-02 13:02] LABS: Rapid Plasma Reagin Non-Reactive (NonReactive)
--- NOTE | 2020-11-16 08:16 | PM.OBDSVD ---
DS: Admitting Diagnosis Admitting Diagnosis Admitting Diagnosis: labor , SROM DS: Discharge Diagnosis Discharge Diagnosis (1) Oligohydramnios antepartum: Qualifiers: Fetus number: single or unspecified fetus Qualified Code(s): O41.00X0 - Oligohydramnios, unspecified trimester, not applicable or unspecified Code(s): O41.00X0 - Oligohydramnios, unspecified trimester, not applicable or unspecified Status: Acute (2) Delivery with history of : Code(s): O34.219 - Maternal care for unspecified type scar from previous delivery Status: Acute (3) SROM (spontaneous rupture of membranes): Status: Acute OB - DS: Summary OB Procedures : NST and Ultrasound OB Procedures Intrapartum: OB Procedures: : None Peripartum Data Procedures: Procedures Operation Date: 10/29/20 07:30 Actual Procedures Side Surgeon p Section Shahzad Nj MD Time Spent with Patient Time attestation: Total time spent providing and/or coordinating discharge services: DS: Data Data Completed and Pending Completed studies during hospitalization: Pending at discharge 10/29/20 15:38 Surgical [PTH] Routine 11/02/20 07:59 Surgical [PTH] Routine Discharge Plan Discharge Attending physician on discharge: Yu Benjamin Consulting providers: Maikel Edmonds Discharging Clinician: Shahzad Nj Patient Disposition: Home, Self-Care Activity: may shower, may drive after 2 weeks and pelvic rest Diet: as tolerated Wound Care Instructions: incision open to air Discharge Instructions: Education: Mom and Baby Guide Given to: Mother Follow-Up: Call your delivering provider's office for an appointment to be seen in: Call office for appointment Mom and baby should come to the [facility] for the follow-up appointment. Appointment Date/Time: November 02, 2020 at 11:00 am What to expect at your follow-up visit: Blood Pressure Check Physical Assessment Call [phone] if you are unable to keep your appointment time. BREAST CARE: * Wear a snug supportive bra. * For engorgement discomfort: Breast Feeding: * Apply warm moist washcloths * Express milk as needed to relieve engorgement * Wear loose clothing Bottle Feeding: * May apply ice packs * For sore nipples: * Identify correct latch-on * Apply warm moist washcloths before and after nursing * Air dry nipples after nursing * May apply Lansinoh cream to nipples ABDOMINAL INCISION: (if applicable) * Allow incision to air dry * Do NOT use lotions for powders on your incision * When showering, allow soap and water to run over the incision, but do not wash incision EPISIOTOMY/PERINEAL CARE: * Until bleeding stops, use your mehreen bottle after urinating * Change your pad frequently throughout the day * You may take sitz baths several times a day (fill your bathtub with warm water and soak for 20 minutes.) Do NOT bathe in the water * No tub baths until seen by your physician - You may shower ACTIVITY: * Rest as much as possible. * Do not exercise or lift anything heavier than your baby (such as laundry or other children.) * Avoid stairs or driving as much as possible. * Do not put anything into the vagina. No douching, tampons, or sexual activity until seen by physician. NOTIFY PHYSICIAN IF YOU HAVE ANY QUESTIONS OR IF ANY OF THE FOLLOWING SYMPTOMS OCCUR: * If your episiotomy or incision becomes red, swollen, or more painful than what you have experienced in the hospital. * If your vaginal bleeding becomes foul smelling. * If your vaginal bleeding becomes more heavy than a period or if your bleeding changes from pink to bright red. However, you may pass an occasional walnut-sized clot once or twice for the first week . * If you experience a sharp
== END 2020-10-31 12:40 | disposition home or self-care (01) | DRG 540 ==
LOC: ANHOB2 10-31 09:55 → ANHLDR 11-02 11:37 → ANHOB2 11-02 11:37
PROVIDERS: Admitting Provider Obstetrics & Gynecology; PCP Internal Medicine; Visit Provider Obstetrics & Gynecology
DX: O34.211 Maternal care for low transverse scar from previous cesarean delivery (principal); Z30.2 Encounter for sterilization; O77.0 Labor and delivery complicated by meconium in amniotic fluid; Z3A.38 38 weeks gestation of pregnancy; Z37.0 Single live birth
CPT/HCPCS: 36415; 84112; 85025; 86592; 86850; 86900; 86901; 88302; 88307; A9270; J0131; J0690; J1200; J1885; J2274; J2405; J2590; J3010; J7120

== ENCOUNTER 2021-07-29 10:06 | Outpatient (CLI) | payer OTHER, SELFPAY ==
--- NOTE | 2021-07-29 11:30 | NEURO_ITS ---
Impression: # Complains of numbness of right more than left hand. # Only sensory Carpal Tunnel Syndrome on right with normal F-waves. # Normal needle/EMG exam. # There is median/ulnar cross innervation noted. Nerve Conduction Studies Anti Sensory Summary Table Stim Site NR Peak (ms) P-T Amp (?V) Site1 Site2 Delta-P (ms) Dist (cm) Jose Alfredo (m/s) Left Median Anti Sensory (2-3nd Digit) Wrist 2.8 88.2 Wrist 2-3nd Digit 2.8 14.0 50 Wrist 2.6 73.4 Wrist 2-3nd Digit 2.8 14.0 50 Right Median Anti Sensory (2-3nd Digit) Wrist 4.7 31.6 Wrist 2-3nd Digit 4.7 14.0 30 Wrist 5.6 12.0 Wrist 2-3nd Digit 4.7 14.0 30 Left Radial Anti Sensory (Base 1st Digit) Wrist 1.8 50.2 Wrist Base 1st Digit 1.8 0.0 Right Radial Anti Sensory (Base 1st Digit) Wrist 2.1 39.4 Wrist Base 1st Digit 2.1 0.0 Left Ulnar Anti Sensory (5th Digit) Wrist 2.1 89.3 Wrist 5th Digit 2.1 14.0 67 Right Ulnar Anti Sensory (5th Digit) Wrist 2.1 96.8 Wrist 5th Digit 2.1 14.0 67 Motor Summary Table Stim Site NR Onset (ms) O-P Amp (mV) Site1 Site2 Delta-0 (ms) Dist (cm) Jose Alfredo (m/s) Left Median Motor (Abd Poll Brev) Wrist 2.5 5.5 Elbow Wrist 4.1 24.0 59 Elbow 6.6 5.2 Right Median Motor (Abd Poll Brev) Wrist 2.6 7.7 Elbow Wrist 4.4 24.0 55 Elbow 7.0 7.0 Left Ulnar Motor (Abd Dig Minimi) Wrist 2.1 9.2 A Elbow Wrist 4.0 25.0 63 A Elbow 6.1 8.4 Right Ulnar Motor (Abd Dig Minimi) Wrist 1.7 7.6 A Elbow Wrist 4.5 25.0 56 A Elbow 6.2 7.0 F Wave Studies NR F-Lat (ms) L-R F-Lat (ms) Left Median (Mrkrs) (Abd Poll Brev) 25.03 0.00 Right Median (Mrkrs) (Abd Poll Brev) 25.03 0.00 Left Ulnar (Mrkrs) (Abd Dig Min) 24.18 0.14 Right Ulnar (Mrkrs) (Abd Dig Min) 24.32 0.14 EMG Side Muscle Nerve Root Ins Act Fibs Amp Dur Recrt Comment Right 1stDorInt Ulnar C8-T1 Nml Nml Nml Nml Nml Right Ext Indicis Radial (Post Int) C7-8 Nml Nml Nml Nml Nml Right Ext Digitorum Radial (Post Int) C7-8 Nml Nml Nml Nml Nml Right BrachioRad Radial C5-6 Nml Nml Nml Nml Nml Right PronatorTeres Median C6-7 Nml Nml Nml Nml Nml Right Abd Poll Brev Median C8-T1 Nml Nml Nml Nml Nml Left 1stDorInt Ulnar C8-T1 Nml Nml Nml Nml Nml Left Ext Indicis Radial (Post Int) C7-8 Nml Nml Nml Nml Nml Left Ext Digitorum Radial (Post Int) C7-8 Nml Nml Nml Nml Nml Left BrachioRad Radial C5-6 Nml Nml Nml Nml Nml Left PronatorTeres Median C6-7 Nml Nml Nml Nml Nml Left Abd Poll Brev Median C8-T1 Nml Nml Nml Nml Nml MTDD
== END 2021-07-29 10:07 | disposition home or self-care (01) ==
LOC: ANHNEURO 10:10
PROVIDERS: PCP Internal Medicine; Visit Provider Clinical Nurse Specialist
DX: R20.2 Paresthesia of skin (principal); G56.01 Carpal tunnel syndrome, right upper limb
CPT/HCPCS: 95886; 95911

== ENCOUNTER 2022-01-04 14:59 | Outpatient (CLI) | payer OTHER, SELFPAY | END 2022-01-04 15:00 | disposition home or self-care (01) | LOC: ANHLAB 15:01 | PROVIDERS: PCP Internal Medicine; Visit Provider Clinical Nurse Specialist | DX: R50.9 Fever, unspecified (principal) | CPT/HCPCS: 87081; 87880 ==

== ENCOUNTER → 2022-01-05 00:31 | Outpatient (CLI) | payer OTHER, SELFPAY ==
[2022-01-05 16:39] LABS: SARS-CoV-2 RNA PCR Negative
== END ==
PROVIDERS: PCP Internal Medicine; Visit Provider Clinical Nurse Specialist
DX: R50.9 Fever, unspecified (principal); Z20.822 Contact with and (suspected) exposure to COVID-19
CPT/HCPCS: C9803; U0003; U0005

== ENCOUNTER 2022-03-10 14:45 | Emergency (ER) | payer OTHER, SELFPAY ==
[2022-03-10 14:55] VITALS: BP 155/109; PULSE 95; RESP 16; TEMP 37; O2SAT 97
[2022-03-10 18:48] VITALS: RESP 16; O2SAT 100
--- NOTE | 2022-03-10 19:33 | ED.RECABL ---
HPI - Recheck/Abnormal Lab/Rx General Chief Complaint: Recheck/Abnormal Lab/Rx Stated Complaint: high blood pressure/nausea Time Seen by Provider: 03/10/22 19:05 Source: patient History of Present Illness HPI narrative: Patient presents with not feeling well. Reports not been feeling well for the past couple days she reports congestion cough and shortness of breath. Today she took some Sudafed and went to work shortly after she noted she was feeling flushed then noted her having an elevated blood pressure of 140 systolic and she requested to leave work. She continued to feel unwell so she came to the ER for further evaluation. She has any chest pain. She does report some nausea but denies vomiting denies any diarrhea denies any known sick contacts. Related Data Allergies Allergy/AdvReac Type Severity Reaction Status Date / Time No Known Allergies Allergy Verified 10/29/20 14:03 Review of Systems Review of Systems: CONSTITUTIONAL: Denies fever, chills, or sweats. EYES: Denies visual changes, redness, or discharge. ENT: Denies rhinorrhea, sore throat, or otalgia. CARDIOVASCULAR: Denies chest pain, palpitations, or edema. RESPIRATORY: Reports cough and shortness of breath GASTROINTESTINAL: Denies abdominal pain, vomiting, or diarrhea. GENITOURINARY: Denies dysuria or hematuria. SKIN: Denies rash or itching. MUSCULOSKELETAL: Denies back pain, joint pain, or myalgia. NEUROLOGIC: Denies numbness, dizziness, or focal weakness. PSYCHIATRIC: Denies anxiety or depression. All systems reviewed & are unremarkable except as noted in HPI and below PMFSH Past Medical History Medical History Allergies Anxiety with depression Asthma Delivery with history of Lumbar radiculopathy Migraine Oligohydramnios antepartum Single delivery by SROM (spontaneous rupture of membranes) Surgical History Surgical History History of section Family History Family History Father Asthma Sibling Asthma Mother Hypertension High cholesterol Grandparent Hypertension Acute myocardial infarction High cholesterol Social History Social History Smoking status: Never smoker Alcohol intake: never Substance use: never Gender identity (if verbalized by the patient): Female Spiritual care concerns: No Exam Narrative: GENERAL: Well-appearing, well-nourished, and in no acute distress. HEAD: Normocephalic, atraumatic. EYES: PERRLA and EOMI. ENT: Nares clear, no rhinorrhea or epistaxis. Mucous membranes moist. NECK: Supple. No masses. No JVD CHEST: Clear to auscultation. No respiratory distress. No wheezes rales or rhonchi HEART: Regular rate and rhythm. No murmur heard. Normal peripheral pulses. ABDOMEN: Soft, nontender, nondistended, normal active bowel sounds. EXTREMITIES: Normal range of motion. No edema. SKIN: Warm, dry, no rash. NEURO: No focal deficits. Alert and oriented x3. PSYCH: Normal mood and affect. Course Reevaluation(s) Reevaluation #1: Patient resting comfortably Date: 03/10/22 Time: 19:25 Vital Signs Vital signs: Vital Signs Temperature 37.0 C 03/10/22 14:55 Pulse Rate 95 03/10/22 14:55 Respiratory Rate 16 03/10/22 14:55 Blood Pressure 155/109 H 03/10/22 14:55 Pulse Oximetry 97 03/10/22 14:55 Temperature 37.0 C 03/10/22 14:55 Pulse Rate 95 03/10/22 14:55 Respiratory Rate 16 03/10/22 18:48 Blood Pressure 155/109 H 03/10/22 14:55 Pulse Oximetry 100 03/10/22 18:48 MDM - Recheck/Abnormal Lab/Rx MDM Narrative Medical decision making narrative: H&P as above, vss, pt looks clinically well, exam reassuring, labs , patient declined chest x-ray, additional labs/img considered, symptomatic relief available as needed, on reevaluati
[2022-03-10 20:16] LABS: SARS-CoV-2 RNA PCR Negative
[2022-03-10 20:26] VITALS: BP 130/99; PULSE 77; RESP 18; O2SAT 98
== END 2022-03-10 20:27 | disposition home or self-care (01) ==
PROVIDERS: Emergency Provider Emergency Medicine; PCP Internal Medicine
DX: B34.9 Viral infection, unspecified (principal); R05.9 Cough, unspecified; Z20.822 Contact with and (suspected) exposure to COVID-19; J45.909 Unspecified asthma, uncomplicated
CPT/HCPCS: 87804; 99283; C9803; U0003; U0005

== ENCOUNTER 2022-03-18 09:26 | Outpatient (CLI) | payer OTHER, SELFPAY ==
--- NOTE | ~2022-03-18 | XR_ITS ---
EXAMINATION: XR chest 2V 03/18/2022 09:12 INDICATION: Asthma PROCEDURE: 2 view chest COMPARISON: 08/18/2020 FINDINGS: The lungs are clear. The cardiomediastinal silhouette is within normal limits. There are no pleural effusions. There is no pneumothorax suspected. IMPRESSION: 1: NO ACUTE CARDIOPULMONARY DISEASE. Reviewed, dictated and finalized at location A.
[2022-03-18 09:38] LABS: Basophils Absolute Auto 0.1 K/mm3 (0.0-0.1); Basophils Percent Auto 0.6 % (0.2-1.2); Eosinophils Absolute Auto 0.5 K/mm3 (0-0.3); Eosinophils Percent Auto 5.1 % (0-4.4); Hematocrit 43.3 % (37.0-47.0); Hemoglobin 14.3 g/dL (12.0-15.0); Immature Granulocyte Absolute 0.03 K/mm3 (0.00-0.031); Immature Granulocyte Percent A 0.3 % (0-0.5); Lymphocytes Absolute Auto 3.41 K/mm3 (0.9-3.2); Lymphocytes Percent Auto 34.6 % (18.3-44.2); Mean Corpuscular Hemoglobin 29.6 pg (26-34); Mean Corpuscular Volume 89.6 fl (80-100); Mean Platelet Volume 9.5 fl (7.4-10.4); Monocytes Absolute Auto 0.6 K/mm3 (0.1-0.6); Monocytes Percent Auto 6.1 % (2.6-8.5); Neutrophils Absolute Auto 5.3 K/mm3 (1.3-6.7); Neutrophils Percent Auto 53.3 % (45.5-73.1); Platelet Count Result 331 k/mm3 (150-375); Red Blood Count 4.83 M/mm3 (4.2-5.4); Red Cell Distribution Width 12.9 % (11.5-14.5); White Blood Count 9.9 K/mm3 (4.5-10.0)
[2022-03-18 09:48] LABS: Alanine Aminotransferase 32 U/L (6-35); Albumin Level 4.4 g/dL (3.5-5.1); Alkaline Phosphatase 84 U/L (38-126); Anion Gap 10 mmol/L (8-16); Aspartate Amino Transferase 34 U/L (14-36); Bilirubin,Total 0.2 mg/dL (0.2-1.3); Blood Urea Nitrogen 12 mg/dL (7-17); Calcium 9.2 mg/dL (8.4-10.2); Carbon Dioxide 26 mmol/L (22-30); Chloride 103 mmol/L (98-107); Cholesterol 197 mg/dL (0-200); Estimated Glomerular Filt Rate > 60; Glucose 75 mg/dL (65-110); HDL Direct 34 mg/dL; Potassium 3.7 mmol/L (3.4-5.0); Sodium 139 mmol/L (137-145); Triglycerides 180 mg/dL (<150)
[2022-03-18 09:59] LABS: LDL Cholesterol Direct 128 mg/dL
== END 2022-03-18 09:27 | disposition home or self-care (01) ==
PROVIDERS: PCP Internal Medicine; Visit Provider Clinical Nurse Specialist
DX: J45.909 Unspecified asthma, uncomplicated (principal)
CPT/HCPCS: 36415; 71046; 80053; 80061; 84443; 85025

== ENCOUNTER 2022-03-31 12:23 | Outpatient (CLI) | payer OTHER, SELFPAY ==
--- NOTE | ~2022-03-31 | CT_ITS ---
EXAMINATION: CTA chest PE protocol DATE: 03/31/2022 12:56 INDICATION: Chest tightness. Cough. Asthma. Dyspnea. TECHNIQUE: Computed tomography angiography (CTA) of the chest was performed with 100 mL Omnipaque-350 intravenous contrast timed to evaluate the pulmonary arteries. Coronal maximum intensity projection 3D-reconstructions were created by the technologist. Automated exposure control and iterative reconst ruction technique were employed. The dose-length product was 481.03 mGy-cm. COMPARISON: Chest 2 views 03/18/2022 FINDINGS: There is no pneumonia or pleural effusion. The heart size is normal. No pericardial effusio n. There is no pulmonary embolus. There is mild pectus excavatum. There is chronic mild anterior wedg ing of multiple thoracic vertebral bodies. There is moderate thoracic spondylosis. IMPRESSION: 1. No pulmonary embolus. Reviewed, dictated and finalized at location A. IMPRESSION: 1. No pulmonary embolus.
== END 2022-03-31 12:24 | disposition home or self-care (01) ==
PROVIDERS: PCP Internal Medicine; Visit Provider Nurse Practitioner
DX: R06.00 Dyspnea, unspecified (principal)
CPT/HCPCS: 71275; Q9967

== ENCOUNTER 2022-04-19 14:15 | Outpatient (CLI) | payer OTHER, SELFPAY ==
--- NOTE | 2022-04-19 14:23 | ECHO_ITS ---
Patient Info Name: Makenna Singletary Age: 27 years : 1995 Gender: Female Ht: 62 in Wt: 190 lbs BSA: 1.98 m2 HR: 83 bpm BP: 135 / 88 mmHg Heart Rhythm: Sinus Rhythm Exam Date: 04/19/2022 2:50 PM Exam Location: [facility] Patient Status: Outpatient Admit Date: 04/19/2022 Staff Ordering Physician: Makenna Mak Tool Repairer Bench: Harman Florentino RDCS, RT Attending Provider: Makenna Mak Referring Physician: Aubree MAS; Exam Type: CA echo doppler color flow Study Info Indications R94.31 - Abnormal electrocardiogram ECG EKG Complete two-dimensional, color flow and Doppler transthoracic echocardiogram is performed. Summary 1. Complete two-dimensional, color flow and Doppler transthoracic echocardiogram is performed. 2. Left ventricular chamber dimension is normal. 3. Left ventricular systolic function is normal, estimated at 60-65%. 4. The left ventricular diastolic function is normal. 5. There is mildly increased left ventricular wall thickness. 6. The basal inferoseptal, and mid inferoseptal are hypokinetic. Left Ventricle Left ventricular chamber dimension is normal. Left ventricular systolic function is normal, estimated at 60-65%. There is mildly increased left ventricular wall thickness. The left ventricular diastolic function is normal. The basal inferoseptal, and mid inferoseptal are hypokinetic. All other rutherford appear normal. Right Ventricle Right ventricular chamber dimension is normal. Right ventricular systolic function is normal. Left Atria Left atrial chamber dimension is normal. Right Atria Right atrial chamber dimension is normal. Atrial Septum Intact interatrial septum visualized by color flow imaging. Aortic Valve The aortic valve is trileaflet. There is mild aortic valve sclerosis. There is no aortic valve stenosis. There is trace aortic valve regurgitation. Pulmonic Valve The pulmonic valve is normal. There is no pulmonic valve stenosis. There is trace pulmonic regurgitation. Mitral Valve The mitral valve has normal leaflets. There is no mitral valve stenosis. There is trace mitral valve regurgitation. Tricuspid Valve The tricuspid valve leaflets are normal. There is no significant tricuspid valve stenosis. There is trace tricuspid valve regurgitation. Pericardium/Pleural The pericardium appears normal. There is no pericardial effusion. Inferior Vena Cava Normal inferior vena cava with >50% collapse upon inspiration consistent with normal right atrial pressure, 5 mmHg. Aorta The aortic root size at the sinus of Valsalva is normal. Left Ventricular Outflow Tract Name Value Normal LVOT 2D LVOT Diameter 1.9 cm LVOT Doppler LVOT Peak Velocity 100 cm/s LVOT Peak Gradient 4 mmHg LVOT Mean Gradient 2 mmHg LVOT VTI 20 cm LVOT VTI/AV VTI Ratio 0.7 LVOT Stroke Volume 54 ml LVOT CO 5.2 l/min
--- NOTE | 2022-04-20 08:08 | WPDPFTINT ---
PFT Procedure Performed PFT Procedure Performed Spirometry with Pre/Post Bronchodilator Plethysmography (Lung Vol) Diffusing Cap (DLCO) Flow Vol Loop PFT Interpretation This is a pulmonary function test with pre and post-bronchodilator spirometry, plethysmography and diffusing capacity. The test was performed and results interpreted in accordance with the 2019 and 2005 ATS/ERS Task Force guidelines respectively using the Global Lung Function Initiative-2012 reference equations. Patient demonstrated good effort and cooperation. Reproducibility criteria were met. The quality of the pre bronchodilator spirometry maneuver was Grade A and post bronchodilator spirometry maneuver was Grade A. Findings: Spirometry: There is decreased maximal expiratory airflow at low lung volumes with concave expiratory flow tracing. The contour the inspiratory flow tracing is normal. The pre bronchodilator FVC is 3.52 L, 100% predicted. The pre bronchodilator FEV1 is 2.32 L, 77% predicted. The pre bronchodilator FEV1: FVC ratio is 66%. The post bronchodilator FVC is 3.57 L, representing 1% increase. The post bronchodilator FEV1 is 2.76 L, representing a 19% increase. The post bronchodilator FEV1: FVC ratio 77%. Plethysmography: The total lung capacity is 4.46 L, 94% predicted. Functional residual capacity is 2.07 L, 81% predicted. The residual volume is 0.94 L, 75% predicted. Diffusing capacity: The diffusing capacity unadjusted for hemoglobin and carboxyhemoglobin is 22.9, 95% predicted. The diffusing capacity adjusted for alveolar volume is 5.36, 107% predicted. Impression: There is a mild obstructive abnormality with significant improvement after inhaling a single dose of albuterol. The lung volumes are normal. The diffusing capacity is normal. There are no prior studies for comparison
== END 2022-04-19 14:16 | disposition home or self-care (01) ==
LOC: ANHCARD 14:16
PROVIDERS: PCP Internal Medicine; Visit Provider Clinical Nurse Specialist
DX: R94.31 Abnormal electrocardiogram [ECG] [EKG] (principal); J45.909 Unspecified asthma, uncomplicated
CPT/HCPCS: 93306; 94060; 94726; 94729

== ENCOUNTER 2022-05-17 08:19 | Outpatient (CLI) | payer OTHER, SELFPAY ==
--- NOTE | 2022-05-17 08:26 | EST_ITS ---
Patient Info Name: Makenna Singletary Age: 27 years : 1995 Gender: Female Ht: 62 in Wt: 198 lbs BSA: 2.03 m2 HR: 95 bpm BP: 109 / 83 mmHg Heart Rhythm: Sinus Rhythm Technical Quality: Fair Exam Date: 05/17/2022 8:48 AM Exam Location: [facility] Patient Status: Outpatient Admit Date: 05/17/2022 Staff Ordering Physician: Makenna Mak-C [employer] Dispatcher: Blossom Barron RDCS Attending Provider: Referring Physician: Aubree MAS; Exam Type: CA stress echo Study Info Indications - ABN ECG Treadmill exercise stress echocardiogram is performed. Summary 1. 1. Negative Fred exercise stress test for ischemic ST changes by ECG criteria. However, patient achieved only 77% MPHR for age group at 148 bpm which reduces sensitivity of the test. 2. 2. Reduced functional capacity, achieving 7 METs of workload. 3. 3. Appropriate HR response to exercise. 4. 4. Appropriate HR recovery at 1 minute post exercise. 5. 5. Negative stress echocardiogram for ischemia by wall motion analysis at the level of exercise achieved. 6. 6. Patient informed of the above results. Stress Echo Findings Left Ventricle Appropriate increase in LV endocardial thickening with systole. Appropriate augmentation of contractility with systole. No wall motion abnormality. Left Ventricle Normal LV systolic function, no wall motion abnormality. Protocol: Fred Stress ECG Details Stage: REST Duration (min): 2 min : 0 sec Speed (mph): 0.0 Grade (%): 0 HR (bpm): 95 SBP (mmHg): 109 DBP (mmHg): 83 METS: --- Stage: REST Duration (min): 14 min : 42 sec Speed (mph): 0.0 Grade (%): 0 HR (bpm): 85 SBP (mmHg): 109 DBP (mmHg): 83 METS: --- Stage: STAGE 1 Duration (min): 1 min : 0 sec Speed (mph): 1.7 Grade (%): 10 HR (bpm): 112 SBP (mmHg): 109 DBP (mmHg): 83 METS: --- Stage: STAGE 1 Duration (min): 2 min : 0 sec Speed (mph): 1.7 Grade (%): 10 HR (bpm): 117 SBP (mmHg): 109 DBP (mmHg): 83 METS: --- Stage: STAGE 1 Duration (min): 3 min : 0 sec Speed (mph): 1.7 Grade (%): 10 HR (bpm): 120 SBP (mmHg): 156 DBP (mmHg): 92 METS: --- Stage: STAGE 2 Duration (min): 1 min : 0 sec Speed (mph): 2.5 Grade (%): 12 HR (bpm): 138 SBP (mmHg): 156 DBP (mmHg): 92 METS: --- Stage: STAGE 2 Duration (min): 2 min : 0 sec Speed (mph): 2.5 Grade (%): 12 HR (bpm): 145 SBP (mmHg): 195 DBP (mmHg): 97 METS: --- Stage: STAGE 2 Duration (min): 2 min : 38 sec Speed (mph): 0.0 Grade (%): 0 HR (bpm): 147 SBP (mmHg): 195 DBP (mmHg): 97 METS: --- Stage: RECOVERY Duration (min): 0 min : 21 sec Speed (mph): 0.0 Grade (%): 0 HR (bpm): 142 SBP (mmHg): 195 DBP (mmHg): 97 METS: --- Stage: RECOVERY Duration (min): 1 min : 21 sec Speed (mph): 0.0 Grade (%): 0 HR (bpm): 117 SBP (mmHg): 195 DBP (mmHg): 97 METS:
== END 2022-05-17 08:20 | disposition home or self-care (01) ==
PROVIDERS: PCP Internal Medicine; Visit Provider Clinical Nurse Specialist
DX: R93.1 Abnormal findings on diagnostic imaging of heart and coronary circulation (principal)
CPT/HCPCS: 93351

== ENCOUNTER 2022-08-15 10:22 | Emergency (ER) | payer OTHER, SELFPAY ==
--- NOTE | 2022-08-15 10:23 | ED.FEMALEGU ---
HPI - Female Genitourinary General Chief complaint: Urogenital-Female Stated complaint: UTI Time Seen by Provider: 08/15/22 10:23 Source: patient Mode of arrival: ambulatory Limitations: no limitations History of Present Illness HPI Narrative: Ms. Singletary is a 27-year-old female patient presenting to the clinic today with complaints of UTI symptoms since yesterday and sinus infection x4 weeks. She reports she just finished prednisone last week and her symptoms persist. She has purulent nasal drainage and sinus pressure. Complains of urinary frequency and urgency with low urine output. Also reporting some left sided flank pain. Has felt feverish. Related Data Home Medications Medication Instructions Recorded Confirmed albuterol sulfate 2.5 mg/3 mL 2.5 mg inhalation Q4H PRN Dyspnea 08/15/22 08/15/22 (0.083 %) solution for nebulization albuterol sulfate 90 mcg/actuation 90 mcg inhalation DIRECTED 08/15/22 08/15/22 aerosol inhaler fluticasone 250 mcg-salmeterol 50 1 inh inhalation BID 08/15/22 08/15/22 mcg/dose blistr powdr for inhalation (Advair Diskus) fluticasone fur. 100 mcg-umeclid 1 inh inhalation DAILY 08/15/22 08/15/22 62.5 mcg-vilant 25 mcg inhalat.powder (Trelegy Ellipta) montelukast 10 mg tablet 10 mg PO HS 08/15/22 08/15/22 Allergies Allergy/AdvReac Type Severity Reaction Status Date / Time No Known Allergies Allergy Verified 08/15/22 10:26 Review of Systems Review of Systems: Pertinent positives per HPI. Patient denies any fever, chills, rash, headache, visual changes, dizziness, cough, shortness of breath, chest pain, palpitations, nausea, vomiting, diarrhea, constipation, PMFSH Past Medical History Medical History Allergies Anxiety with depression Asthma Delivery with history of Lumbar radiculopathy Migraine Oligohydramnios antepartum Single delivery by SROM (spontaneous rupture of membranes) Surgical History Surgical History History of section Family History Family History Father Asthma Sibling Asthma Mother Hypertension High cholesterol Grandparent Hypertension Acute myocardial infarction High cholesterol Social History Social History Smoking status: Never smoker Alcohol intake: never Substance use: never Gender identity (if verbalized by the patient): Female Spiritual care concerns: No Comments At the time of my signature, I reviewed and agree with the nursing past medical, surgical, social, and family history. There is no relevant family history pertinent to the patient complaint. Exam Narrative: General: Well-developed, obese, in no apparent distress Head: Normocephalic, atraumatic Eyes: Pupils equally round and reactive to light bilaterally, EOM intact, sclera and conjunctive clear, no discharge, lids normal Ears: TMs intact and clear, ear canals clear, no drainage, grossly hearing normal. Nose: Nares patent, no discharge, moderate inflammation, maxillary and frontal sinus tenderness. Mouth: Oral pharynx without lesions or masses, good dentition, MMM. Postnasal drip Neck: Supple, trachea midline, no enlargement of anterior or posterior cervical nodes, no thyroid masses or goiter palpable. Cardio: Regular rate and rhythm, s1 and s2 normal, no murmur appreciated. Resp: Clear to auscultation bilaterally, no rhonchi, rales, wheezing or rubs Abdomen: Soft, pliable, mild tender to palpation over the left mid quadrant, bowel sounds present all 4 quadrants, no organomegaly, positive CVAT tenderness on the left flank Course Course Emergency Course: Portions of this record may have been created with voice recognition software. Level of Care: Express Care Vis
[2022-08-15 10:29] VITALS: BP 120/87; PULSE 99; RESP 16; TEMP 36.2; O2SAT 97
[2022-08-15 10:42] VITALS: BP 120/87; PULSE 99; RESP 16; TEMP 36.2; O2SAT 97
== END 2022-08-15 10:55 | disposition home or self-care (01) ==
PROVIDERS: Emergency Provider Nurse Practitioner Family; PCP Internal Medicine
DX: J01.90 Acute sinusitis, unspecified (principal); N30.01 Acute cystitis with hematuria; J45.909 Unspecified asthma, uncomplicated
CPT/HCPCS: 81003; 87077; 87086; 87088; 99213; G0463

== ENCOUNTER 2022-09-08 10:42 | Outpatient (CLI) | payer OTHER, SELFPAY | END 2022-09-08 10:43 | disposition home or self-care (01) | LOC: ANHLAB 10:42 | PROVIDERS: PCP Internal Medicine; Visit Provider Internal Medicine Critical Care Medicine | DX: J45.909 Unspecified asthma, uncomplicated (principal) | CPT/HCPCS: 87015; 87070; 87102; 87106; 87116; 87205; 87206 ==

== ENCOUNTER 2022-10-13 08:35 | Outpatient (CLI) | payer OTHER, SELFPAY ==
--- NOTE | 2022-10-22 19:38 | WPDHOMESLEEP ---
Sleep Study - Home Unattended Date of Study: 10/13/22 Ordering Provider: Sana Quinteros MD Interpreting Provider: Radha Traore, DO Home Sleep Study Type: Apnea Link Air Height: 1.57 m Weight: 95.254 kg Body Mass Index: 38.4 Neck Circumference (inches): 15.25 Braymer: 5 Reason for Sleep Study Witnessed apneas, multiple nighttime awakenings Sleep History The patient is a 18 year seasonal allergies, anxiety, depression, asthma, lumbar radiculopathy, migraines and mild pectus excavatum that had a sleep study ordered for evaluation of sleep apnea. The patient occasionally awakens from sleep short of breath. She occasionally awakens at night with heartburn, belching or cough. She constantly snores loud enough others complain. She constantly has trouble sleeping when she has a cold. She denies waking up gasping for air throughout the night. She frequently has breathing problems at night observed by herself or others. She occasionally sweats excessively at night. She occasionally has heart palpitations or irregular heartbeats during night. She denies falling asleep during the day and while driving. She denies sleep paralysis, cataplexy and hypnagogic / hypnopompic hallucinations. She denies having trouble at school or work due to sleepiness. She denies feeling afraid of going to sleep. She denies having nightmares. She denies remembering her dreams. She occasionally has thoughts racing through her mind. She rarely feels sad, depressed or anxious. She occasionally has muscular tension. He rarely notices parts of her body jerk. She rarely kicks during the night. She denies having crawling and aching feelings in her legs. She rarely has leg pain during the night. She denies grinding her teeth during sleep and denies awakening with morning jaw pain. She is rarely bothered by pain during the day and rarely awakened by pain during the night. She denies waking up feeling stiff in morning. She denies waking up with sore or achy muscles. She rarely wakes up with pain in the neck, spine or other joints. She goes to bed between 9-10 p.m. on weekdays and between 10-11 p.m. on the weekends. It takes her 30 minutes to an hour to fall asleep. She wakes up 3 times throughout the night to urinate. It takes her over 30 minutes to fall back asleep. She wakes up at 3:00 a.m. on both weekdays and weekends. She typically gets 6.5 to 7 hours of sleep per night. She will stay in bed for 10 minutes after enough in the morning. She currently lives with her boyfriend and 3 children. She will consume caffeinated beverages within 2 hours of bedtime. She does not engage in physical exercise before bedtime. She will watch television before falling asleep. She denies taking naps in the afternoon evening. She denies consuming caffeinated beverages throughout the day. She denies tobacco, alcohol and recreational drug use. [facility] Past Medical History Medical History Allergies Anxiety with depression Asthma Delivery with history of Lumbar radiculopathy Migraine Oligohydramnios antepartum Single delivery by SROM (spontaneous rupture of membranes) Surgical History Surgical History History of section Family History Family History Father Asthma Sibling Asthma Mother Hypertension High cholesterol Grandparent Hypertension Acute myocardial infarction High cholesterol Social History Social History Smoking status: Never smoker Alcohol intake: never Substance use: never Gender identity (if verbalized by the patient): Female Spiritual care concerns: No Medications Home Medications Medication Instructions Recorded Confirmed Type albuterol sulfate 2.5 mg/3
[2022-10-22 19:46] VITALS: BMI 38.4
--- NOTE | 2023-02-02 13:30 | SLEEP ---
pt does not want to use cpap therapy
== END 2022-10-14 10:11 | disposition home or self-care (01) ==
LOC: ANHCSM 08:43
PROVIDERS: PCP Internal Medicine; Visit Provider Internal Medicine Critical Care Medicine
DX: R53.83 Other fatigue (principal); G47.10 Hypersomnia, unspecified; G47.30 Sleep apnea, unspecified; G47.33 Obstructive sleep apnea (adult) (pediatric)
CPT/HCPCS: 95806

== ENCOUNTER 2022-11-04 16:32 | Emergency (ER) | payer OTHER, SELFPAY ==
[2022-11-04 16:43] VITALS: BP 134/56; PULSE 100; RESP 16; TEMP 36.4; O2SAT 99
--- NOTE | 2022-11-04 16:53 | ED.URI ---
HPI - URI/Sore Throat General Chief Complaint: Upper Respiratory Infection Stated Complaint: Ear/Nose/ Throat Time Seen by Provider: 11/04/22 16:53 Source: patient Mode of arrival: ambulatory Limitations: no limitations History of Present Illness HPI Narrative: 27-year-old female presents complaint of nasal congestion, sore throat, fatigue, chills for 2 days. Reports history of recurrent strep. Reports left tonsil is always enlarged but feels worse than usual. Denies nausea vomiting diarrhea. All systems reviewed and negative except as noted above. Related Data Home Medications Medication Instructions Recorded Confirmed albuterol sulfate 2.5 mg/3 mL 2.5 mg inhalation Q4H PRN Dyspnea 08/15/22 08/17/22 (0.083 %) solution for nebulization albuterol sulfate 90 mcg/actuation 90 mcg inhalation DIRECTED 08/15/22 08/17/22 aerosol inhaler montelukast 10 mg tablet 10 mg PO HS 08/15/22 08/17/22 loratadine 10 mg tablet 10 mg PO DAILY 08/17/22 08/17/22 Allergies Allergy/AdvReac Type Severity Reaction Status Date / Time No Known Allergies Allergy Verified 09/07/22 12:59 Review of Systems Review of Systems: CONSTITUTIONAL: Denies fever, chills, or sweats. EYES: Denies visual changes, redness, or discharge. ENT: Reports rhinorrhea, congestion, sore throat. Denies otalgia. CARDIOVASCULAR: Denies chest pain, palpitations, or edema. RESPIRATORY: Denies cough or dyspnea. GASTROINTESTINAL: Denies abdominal pain, nausea, vomiting, or diarrhea. GENITOURINARY: Denies dysuria or hematuria. SKIN: Denies rash or itching. MUSCULOSKELETAL: Denies back pain, joint pain, or myalgia. NEUROLOGIC: Denies headache, numbness, or weakness. PSYCHIATRIC: Denies anxiety or depression. All other systems reviewed are negative, except as documented in HPI. [facility] Past Medical History Medical History Allergies Anxiety with depression Asthma Delivery with history of Lumbar radiculopathy Migraine Oligohydramnios antepartum Single delivery by SROM (spontaneous rupture of membranes) Surgical History Surgical History History of section Family History Family History Father Asthma Sibling Asthma Mother Hypertension High cholesterol Grandparent Hypertension Acute myocardial infarction High cholesterol Social History Social History Smoking status: Never smoker Alcohol intake: never Substance use: never Gender identity (if verbalized by the patient): Female Spiritual care concerns: No Comments At time of signature, agree with nursing past medical, surgical, social and family history. There is no relevant family history pertinent to the presenting complaint. Exam Narrative: GENERAL: This is a well-nourished, well-developed patient, in no apparent distress. HEAD: normocephalic, atraumatic. EYES: PERRL. Sclera clear/white. Vision is grossly intact. EARS: External ears normal, auditory canals clear and without drainage, TMs normal without perforation. Hearing grossly intact. NOSE: External nose normal with no obvious nasal discharge, nares without redness, no rhinorrhea. THROAT: Mucous membranes moist, pharynx erythematous, tonsils 3+ bilaterally with exudates NECK: Neck supple, anterior cervical lymphadenopathy. No masses or thyromegaly. CARDIOVASCULAR: Regular rate and rhythm without murmurs, gallops, or rubs. RESPIRATORY: Clear to auscultation. Breath sounds equal bilaterally. No wheezes, rales, or rhonchi. GASTROINTESTINAL: Abdomen soft, non-tender, nondistended. Bowel sounds are active. No hepato-splenomegaly, or palpable masses. No guarding. SKIN: warm, Dry, intact with no suspicious lesions or rash, good texture and turgor. NEURO: awake, alert, and or
== END 2022-11-04 17:36 | disposition home or self-care (01) ==
PROVIDERS: Emergency Provider Nurse Practitioner Family; PCP Internal Medicine
DX: J02.9 Acute pharyngitis, unspecified (principal); Z20.822 Contact with and (suspected) exposure to COVID-19; J45.909 Unspecified asthma, uncomplicated
CPT/HCPCS: 87426; 99213; C9803; G0463

== ENCOUNTER 2022-11-23 08:11 | Emergency (ER) | payer OTHER, SELFPAY ==
--- NOTE | 2022-11-23 08:12 | ED.URI ---
HPI - URI/Sore Throat General Chief Complaint: Upper Respiratory Infection Stated Complaint: Sore Throat Time Seen by Provider: 11/23/22 08:11 Source: patient Mode of arrival: ambulatory Limitations: no limitations History of Present Illness HPI Narrative: Makenna is a 27-year-old female patient presenting to the clinic today with complaints of sore throat since last Monday. She reports no fever but has had chills. States she has had exposure to strep as she passed along with her kids and thinks that her kids give it back to her. States she had strep at the begin the year. MD elicited complaint: sore throat and nasal congestion Related Data Home Medications Medication Instructions Recorded Confirmed albuterol sulfate 2.5 mg/3 mL 2.5 mg inhalation Q4H PRN Dyspnea 08/15/22 11/23/22 (0.083 %) solution for nebulization albuterol sulfate 90 mcg/actuation 90 mcg inhalation DIRECTED 08/15/22 11/23/22 aerosol inhaler montelukast 10 mg tablet 10 mg PO HS 08/15/22 11/23/22 loratadine 10 mg tablet 10 mg PO DAILY 08/17/22 11/23/22 Allergies Allergy/AdvReac Type Severity Reaction Status Date / Time No Known Allergies Allergy Verified 11/23/22 08:14 Review of Systems Review of Systems: Pertinent positives per HPI. Patient denies any fever, rash, headache, visual changes, dizziness, cough, shortness of breath, chest pain, palpitations, nausea, vomiting, diarrhea, constipation, abdominal pain, or any urinary issues. PMFSH Past Medical History Medical History Allergies Anxiety with depression Asthma Delivery with history of Lumbar radiculopathy Migraine Oligohydramnios antepartum Single delivery by SROM (spontaneous rupture of membranes) Surgical History Surgical History History of section Family History Family History Father Asthma Sibling Asthma Mother Hypertension High cholesterol Grandparent Hypertension Acute myocardial infarction High cholesterol Social History Social History (Reviewed 01/18/23 @ 08:13 by JENN Wilkerson Smoking status: Never smoker Alcohol intake: never Substance use: never Gender identity (if verbalized by the patient): Female Spiritual care concerns: No Comments At the time of my signature, I reviewed and agree with the nursing past medical, surgical, social, and family history. There is no relevant family history pertinent to the patient complaint. Exam Narrative: General: Well-developed, morbidly obese, in no apparent distress Head: Normocephalic, atraumatic Eyes: Pupils equally round and reactive to light bilaterally, EOM intact, sclera and conjunctive clear, no discharge, lids normal Ears: TMs intact and clear, ear canals clear, no drainage, grossly hearing normal. Nose: Nares patent, clear nasal discharge, no inflammation, no sinus tenderness. Mouth: Oral pharynx without lesions or masses, good dentition, MMM. oropharynx red with tonsillar swelling without exudate Neck: Supple, trachea midline, enlargement of anterior cervical nodes, no thyroid masses or goiter palpable. Cardio: Regular rate and rhythm, s1 and s2 normal, no murmur appreciated. Resp: Clear to auscultation bilaterally, no rhonchi, rales, wheezing or rubs Course Course Emergency Course: Portions of this record may have been created with voice recognition software. Level of Care: Express Care Visit Vital Signs Vital signs: Vital signs reviewed MDM - URI/Sore Throat MDM Narrative Medical decision making narrative: At the time of visit patient is resting comfortably on the exam table. Strep screen was positive in the clinic today. Prescription for azithromycin was sent to pharmacy supportive measures were discussed with the patient that she voice
[2022-11-23 08:18] VITALS: BP 143/92; PULSE 104; RESP 16; TEMP 36.1; O2SAT 99
== END 2022-11-23 08:30 | disposition home or self-care (01) ==
PROVIDERS: Emergency Provider Nurse Practitioner Family; PCP Internal Medicine
DX: J02.0 Streptococcal pharyngitis (principal); J45.909 Unspecified asthma, uncomplicated
CPT/HCPCS: 87880; 99213; G0463

== ENCOUNTER 2023-01-09 13:03 | Emergency (ER) | payer OTHER, SELFPAY ==
[2023-01-09 13:12] VITALS: BP 138/88; PULSE 86; RESP 14; TEMP 36.4; O2SAT 98
--- NOTE | 2023-01-09 14:01 | ED.GENADULT ---
HPI - General Adult General Chief complaint: Upper Respiratory Infection Stated complaint: Cough/Asthma Time Seen by Provider: 01/09/23 14:02 Source: patient, RN notes reviewed and old records reviewed Mode of arrival: ambulatory Limitations: no limitations History of Present Illness HPI narrative: 27-year-old female presents to the [facility] with complaints of cough for 2 weeks. Has a history of asthma and sometimes it turns into bronchitis. States she has been taking Delsun as well as using her albuterol up to 3 times a day. Patient states that she usually just needs steroids. MD complaint: Cough/asthma Onset (ago): week(s) (2) Related Data Home Medications Medication Instructions Recorded Confirmed albuterol sulfate 2.5 mg/3 mL 2.5 mg inhalation Q4H PRN Dyspnea 08/15/22 01/09/23 (0.083 %) solution for nebulization loratadine 10 mg tablet 10 mg PO DAILY 08/17/22 01/09/23 Allergies Allergy/AdvReac Type Severity Reaction Status Date / Time No Known Allergies Allergy Verified 01/09/23 14:00 Review of Systems Review of Systems: All systems reviewed & are unremarkable except as noted in HPI and below Constitutional: Constitutional: Reports no additional constitutional complaints Eyes: Eyes: Reports no additional eye complaints ENT: Reports system reviewed and no additional complaints, except as documented Cardiovascular: Cardiovascular: Reports no additional cardiovascular complaints, Denies chest pain and Denies dyspnea Respiratory: Respiratory: Reports as per HPI, Denies chest congestion, Reports cough and Denies dyspnea Gastrointestinal: Gastrointestinal: Reports no additional gastrointestinal complaints, Denies abdominal pain, Denies nausea and Denies vomiting Musculoskeletal: Musculoskeletal: Reports no additional musculoskeletal complaints Integumentary/Breasts: Skin/Breast: Reports system reviewed and no additional complaints, except as docu Neurologic: Reports system reviewed and no additional complaints, except as documented Psychiatric: Psychiatric: Reports no additional psychiatric complaints Allergic/Immunologic: Allergic/Immunologic: Reports no additional allergic/immunologic complaints PMFSH Past Medical History Medical History Allergies Anxiety with depression Asthma Delivery with history of Lumbar radiculopathy Migraine Oligohydramnios antepartum Single delivery by SROM (spontaneous rupture of membranes) Surgical History Surgical History History of section Family History Family History Father Asthma Sibling Asthma Mother Hypertension High cholesterol Grandparent Hypertension Acute myocardial infarction High cholesterol Social History Social History Smoking status: Never smoker Alcohol intake: never Substance use: never Gender identity (if verbalized by the patient): Female Spiritual care concerns: No Comments At the time of my signature, I reviewed and agree with the nursing past medical, surgical, social, and family history. There is no relevant family history pertinent to the patient complaint. Exam Const: General: cooperative, healthy appearing, comfortable, no acute distress, well developed, alert and well nourished Nutritional Appearance: well nourished and obese Orientation/consciousness: patient oriented x3 Limitations: no limitations HENMT: Head: normal to inspection Ears: hearing grossly normal bilaterally and external ears normal Face/Nose/Sinus: Normal external nose present, Normal nares present, Normal nasal mucous membranes and turbinates present and normal facial exam Face and sinus: normal facial exam Mouth: Yes Normal oral and palatal mucosa present, Yes lip normal and Yes moist mucou
== END 2023-01-09 14:20 | disposition home or self-care (01) ==
PROVIDERS: Emergency Provider Nurse Practitioner; PCP Internal Medicine
DX: J40 Bronchitis, not specified as acute or chronic (principal)
CPT/HCPCS: 99213; G0463

== ENCOUNTER 2023-09-23 10:43 | Emergency (ER) | payer SELFPAY ==
[2023-09-23 10:56] VITALS: BP 127/94; PULSE 89; RESP 16; TEMP 36.7; O2SAT 99
--- NOTE | 2023-09-23 11:58 | ED.GENADULT ---
HPI - General Adult General Chief complaint: Upper Respiratory Infection Stated complaint: cough,nasal/chest congestion Time Seen by Provider: 09/23/23 11:59 Source: patient Mode of arrival: ambulatory Limitations: no limitations History of Present Illness HPI narrative: 28-year-old female patient presents to [facility] with complaints of an ongoing cough for the past week. Patient does have history of asthma has been using her albuterol rescue it inhaler as well as her nebulizer at home but states she continues to have an ongoing cough. Denies fevers body aches or chills. Patient states she does have a little bit of sinus congestion and does take an antihistamine daily. Denies any abdominal pain, nausea, vomiting or diarrhea. Denies current chest pain but states she does have shortness of breath at times. Related Data Home Medications Medication Instructions Recorded Confirmed albuterol sulfate 2.5 mg/3 mL 2.5 mg inhalation Q4H PRN Dyspnea 08/15/22 09/23/23 (0.083 %) solution for nebulization Allergies Allergy/AdvReac Type Severity Reaction Status Date / Time No Known Allergies Allergy Verified 09/23/23 11:39 Review of Systems Review of Systems: CONSTITUTIONAL: Denies fever, chills, or sweats. EYES: Denies visual changes, redness, or discharge. ENT: Positive rhinorrhea, congestion, denies sore throat, or otalgia. CARDIOVASCULAR: Denies chest pain, palpitations, or edema. RESPIRATORY: Positive cough with mild dyspnea. GASTROINTESTINAL: Denies abdominal pain, nausea, vomiting, or diarrhea. GENITOURINARY: Denies dysuria or hematuria. SKIN: Denies rash or itching. MUSCULOSKELETAL: Denies back pain, joint pain, or myalgia. NEUROLOGIC: Denies headache, numbness, or weakness. PSYCHIATRIC: Denies anxiety or depression. [facility]LY [facility] Past Medical History Medical History Allergies Anxiety with depression Asthma Delivery with history of Lumbar radiculopathy Migraine Oligohydramnios antepartum Single delivery by SROM (spontaneous rupture of membranes) Surgical History Surgical History History of section Family History Family History Father Asthma Sibling Asthma Mother Hypertension High cholesterol Grandparent Hypertension Acute myocardial infarction High cholesterol Social History Social History Smoking status: Never smoker Alcohol intake: never Substance use: never Lack of Transportation: No Lack of Food: Never True Current Housing: I Have Housing Concerned About Future Housing: No Difficulty Paying for Meds: No Currently Unemployed: No Education: High School Diploma/GED Difficulty w/ Childcare or Family Care: No Gender identity (if verbalized by the patient): Female Spiritual care concerns: No Comments At the time of my signature I agree with nursing past medical history, surgical, social, and family history. There is no relevant family history pertinent to the presenting complaint. Exam Narrative: GENERAL: Well-appearing, well-nourished, and in no acute distress. HEAD: Normocephalic, atraumatic. EYES: PERRLA and EOMI. ENT: Nares clear, no rhinorrhea or epistaxis. Mucous membranes moist. Posterior pharynx with no erythema, tonsillar enlargement, exudates or lesions present. Bilateral TMs are clear no erythema or foreign bodies canal. NECK: Supple. No lymphadenopathy CHEST: Clear to auscultation. No respiratory distress. HEART: Regular rate and rhythm. No murmur heard. Normal peripheral pulses. ABDOMEN: Soft, nontender, nondistended, normal active bowel sounds. EXTREMITIES: Normal range of motion. No edema. SKIN: Warm, dry, no rash. NEURO: No focal deficits. Alert and oriented x3. Course Course Level of Ca
== END 2023-09-23 12:27 | disposition home or self-care (01) ==
PROVIDERS: Emergency Provider Nurse Practitioner Family; PCP Internal Medicine
DX: J06.9 Acute upper respiratory infection, unspecified (principal); J45.909 Unspecified asthma, uncomplicated
CPT/HCPCS: 99213; G0463

== ENCOUNTER 2023-10-21 10:42 | Emergency (ER) | payer MEDICAID, SELFPAY ==
[2023-10-21 10:52] VITALS: BP 145/101; PULSE 103; RESP 20; TEMP 37.3; O2SAT 97
--- NOTE | 2023-10-21 11:04 | ED.URI ---
HPI - URI/Sore Throat General Chief Complaint: Upper Respiratory Infection Stated Complaint: Sore Throat History of Present Illness HPI Narrative: 28-year-old female presented for complaint nasal congestion and sore throat for about 1 month. States she has had issues with her insurance and was unable to be seen for evaluation. She denies shortness of breath, wheezing, nausea, vomiting, fevers or chills. Related Data Home Medications Medication Instructions Recorded Confirmed albuterol sulfate 90 mcg/actuation 1 - 2 puff inhalation Q4H PRN 10/21/23 10/21/23 aerosol inhaler shortness of breath or wheezing Allergies Allergy/AdvReac Type Severity Reaction Status Date / Time No Known Allergies Allergy Verified 10/21/23 11:06 Review of Systems Review of Systems: CONSTITUTIONAL: Denies body aches, fever, chills, or sweats. EYES: Denies visual changes, redness, or discharge. ENT: Reports rhinorrhea, congestion, sore throat CARDIOVASCULAR: Denies chest pain, palpitations, or edema. RESPIRATORY: Denies dyspnea. GASTROINTESTINAL: Denies abdominal pain, nausea, vomiting, or diarrhea. SKIN: Denies rash, itching, or wounds. MUSCULOSKELETAL: Denies back pain, joint pain, or myalgia. NEUROLOGIC: Denies headache PMFSH Past Medical History Medical History Allergies Anxiety with depression Asthma Delivery with history of Lumbar radiculopathy Migraine Oligohydramnios antepartum Single delivery by SROM (spontaneous rupture of membranes) Surgical History Surgical History History of section Family History Family History Father Asthma Sibling Asthma Mother Hypertension High cholesterol Grandparent Hypertension Acute myocardial infarction High cholesterol Social History Social History Smoking status: Never smoker Alcohol intake: never Substance use: never Lack of Transportation: No Lack of Food: Never True Current Housing: I Have Housing Concerned About Future Housing: No Difficulty Paying for Meds: No Currently Unemployed: No Education: High School Diploma/GED Difficulty w/ Childcare or Family Care: No Gender identity (if verbalized by the patient): Female Spiritual care concerns: No Exam Narrative: GENERAL: mildly Ill-appearing, no acute distress. EYES: conjunctivae clear ENT: Mucous membranes moist. TM pearly gutierrez with normal light reflex bilaterally; no tragal tenderness. Oropharynx severely erythematous Tonsils enlarged 3+ with exudate. Endorses chronically enlarged tonsils. No drooling, no hoarseness, no trismus, uvula midline. No tripod positioning, hot potato voice, or soft palate swelling. NECK: Supple. No lymphadenopathy CHEST: Clear to auscultation, breath sounds equal. No respiratory distress, speaks in full sentences. HEART: Regular rate and rhythm. No murmur heard. SKIN: Warm, dry, no rash. NEURO: Alert and oriented x3. Course Course Emergency Course: Patient is aware of diagnosis, understands and agrees to treatment plan. Anticipatory guidance given. Patient agrees to follow-up as directed and is aware of reasons to seek care at the emergency department. Portions of this record may have been created with voice recognition software Level of Care: Express Care Visit Vital Signs Vital signs: Vital Signs Temperature 99.2 F 10/21/23 10:52 Pulse Rate 103 H 10/21/23 10:52 Respiratory Rate 20 10/21/23 10:52 Blood Pressure 145/101 H 10/21/23 10:52 Pulse Oximetry 97 10/21/23 10:52 Oxygen Delivery Room Air 10/21/23 10:52 Temperature 99.2 F 10/21/23 10:52 Pulse Rate 103 H 10/21/23 10:52 Respiratory Rate 20 10/21/23 10:52 Blood Pressure 145/101 H 10/21/23 10:5
== END 2023-10-21 11:15 | disposition home or self-care (01) ==
PROVIDERS: Emergency Provider Nurse Practitioner Family; PCP Internal Medicine
DX: J02.0 Streptococcal pharyngitis (principal)
CPT/HCPCS: 87880; 99213; G0463

== ENCOUNTER 2023-12-21 10:27 | Outpatient (CLI) | payer OTHER, SELFPAY ==
[2023-12-21 19:00] LABS: Basophils Absolute Auto 0.1 K/mm3 (0.0-0.1); Basophils Percent Auto 0.7 % (0.2-1.2); Eosinophils Absolute Auto 0.5 K/mm3 (0-0.3); Eosinophils Percent Auto 4.8 % (0-4.4); Hematocrit 43.3 % (37.0-47.0); Hemoglobin 13.8 g/dL (12.0-15.0); Immature Granulocyte Absolute 0.02 K/mm3 (0.00-0.031); Immature Granulocyte Percent A 0.2 % (0-0.5); Lymphocytes Absolute Auto 3.06 K/mm3 (0.9-3.2); Lymphocytes Percent Auto 31.4 % (18.3-44.2); Mean Corpuscular HGB Conc 31.9 g/dl (32-36); Mean Corpuscular Hemoglobin 27.6 pg (26-34); Mean Corpuscular Volume 86.6 fl (80-100); Mean Platelet Volume 9.5 fl (7.4-10.4); Monocytes Absolute Auto 0.6 K/mm3 (0.1-0.6); Monocytes Percent Auto 6.1 % (2.6-8.5); Neutrophils Absolute Auto 5.5 K/mm3 (1.3-6.7); Neutrophils Percent Auto 56.8 % (45.5-73.1); Platelet Count Result 340 k/mm3 (150-375); Red Cell Distribution Width 13.3 % (11.5-14.5); White Blood Count 9.8 K/mm3 (4.5-10.0)
[2023-12-21 19:47] LABS: Alanine Aminotransferase 30 U/L (6-35); Alkaline Phosphatase 107 U/L (38-126); Anion Gap 8 mmol/L (8-16); Aspartate Amino Transferase 40 U/L (14-36); Bilirubin,Total 0.4 mg/dL (0.2-1.3); Blood Urea Nitrogen 8 mg/dL (7-17); Calcium 9.6 mg/dL (8.4-10.2); Carbon Dioxide 25 mmol/L (22-30); Chloride 105 mmol/L (98-107); Estimated Glomerular Filt Rate > 60; Glucose 85 mg/dL (65-110); Potassium 4.3 mmol/L (3.4-5.0); Sodium 138 mmol/L (137-145)
[2023-12-21 20:34] LABS: Rubella IgG Antibody 32.4 IU/ML
[2023-12-23 13:54] LABS: NIL 0.02 IU/mL; Quantiferon TB Plus, 1T NEGATIVE (NEGATIVE)
== END 2023-12-21 10:28 | disposition home or self-care (01) ==
LOC: ANHGOSHLAB 10:28
PROVIDERS: PCP Internal Medicine; Visit Provider Clinical Nurse Specialist
DX: Z13.228 Encounter for screening for other metabolic disorders (principal); Z11.1 Encounter for screening for respiratory tuberculosis; F41.8 Other specified anxiety disorders; Z78.9 Other specified health status
CPT/HCPCS: 36415; 80053; 84443; 85025; 86480; 86735; 86765

== ENCOUNTER 2024-12-22 10:41 | Emergency (ER) | payer SELFPAY ==
[2024-12-22 10:50] VITALS: BP 135/75; PULSE 107; RESP 18; TEMP 37.6; O2SAT 100
--- NOTE | 2024-12-22 10:51 | ED.URI ---
HPI - URI/Sore Throat General Chief Complaint: Upper Respiratory Infection Stated Complaint: Sinus/Asthma Time Seen by Provider: 12/22/24 11:05 Source: patient and RN notes reviewed Mode of arrival: ambulatory Limitations: no limitations History of Present Illness HPI Narrative: 29-year-old female presents with concern for 2 day history of nasal congestion drainage, dry hacking cough. Reports body aches chills. She reports history of asthma and she is out of her albuterol and nebulizer solution. She reports exposure to flu MD elicited complaint: cough Related Data Home Medications ?Medication ?Instructions ?Recorded ?Confirmed ?Last Taken ?Type fexofenadine 180 mg tablet 180 mg PO DAILY 02/02/24 02/02/24 Unknown History ([place]) Allergies Allergy/AdvReac Type Severity Reaction Status Date / Time No Known Allergies Allergy Verified 12/22/24 10:43 Review of Systems Review of Systems: CONSTITUTIONAL: Reports malaise, chills EYES: Denies visual changes, redness, or discharge. ENT: Reports rhinorrhea, congestion CARDIOVASCULAR: Denies chest pain, palpitations, or edema. RESPIRATORY: Reports cough, dyspnea. GASTROINTESTINAL: Denies abdominal pain, nausea, vomiting, diarrhea SKIN: Denies rash or itching. MUSCULOSKELETAL: Reports myalgia. NEUROLOGIC: Denies headache. All systems reviewed & are unremarkable except as noted in HPI and below PMFSH Past Medical History Medical History Allergies Anxiety with depression Asthma Delivery with history of Lumbar radiculopathy Migraine Oligohydramnios antepartum Single delivery by SROM (spontaneous rupture of membranes) Surgical History Surgical History History of section Family History Family History Father Asthma Sibling Asthma Mother Hypertension High cholesterol Grandparent Hypertension Acute myocardial infarction High cholesterol Social History Social History Smoking status: Never smoker Alcohol intake: never Substance use: never Lack of Transportation: No Lack of Food: Never True Current Housing: I Have Housing Concerned About Future Housing: No Difficulty Paying for Meds: No Currently Unemployed: No Education: High School Diploma/GED Difficulty w/ Childcare or Family Care: No Gender identity (if verbalized by the patient): Female Spiritual care concerns: No Comments At time of signature, agree with nursing past medical, surgical, social and family history. There is no relevant family history pertinent to the presenting complaint Exam Narrative: GENERAL: Well-appearing, well-nourished, and in no acute distress. HEAD: Normocephalic EYES: PERRLA, conjunctivae clear ENT: Nares clear. Mucous membranes moist. TM pearly gutierrez with sharp light reflex bilaterally; no tragal tenderness. Oropharynx not erythematous without lesions. Tonsils not enlarged and without exudate, no drooling, no hoarseness, no trismus, uvula midline. NECK: Supple. No lymphadenopathy CHEST: Scattered wheeze, otherwise Clear to auscultation, breath sounds equal. No rhonchi, rales, or stridor. No respiratory distress, speaks in full sentences. HEART: Regular rate and rhythm. No murmur heard. SKIN: Warm, dry, no rash. NEURO: Alert and oriented x3. PSYCH: Normal mood and affect Course Course Emergency Course: Patient is aware of diagnosis, understands and agrees to treatment plan. Anticipatory guidance given. Patient agrees to follow-up as directed and is aware of reasons to seek care at the emergency department. Portions of this record may have been created with voice recognition software Level of Care: Express Care Visit Reevaluation(s) Reevaluation #1: Lung sounds improved, patient reports improvement in chest tightness Date: 12/22/24 Time: 11:18 Vital Signs Vital signs: Vital Signs Temperature 99.6 F 12/22/24 10:50 Pulse Rate 107 H 12/22/24 10:50 Respiratory Rate 18 12/22/24 10:50 Blood Pressure 135/75 12/22/24 10:50 Pulse Oximetry 100 12/22/24 10:50 Oxygen Delivery Room Air 12/22/24 10:50 Temperature 99.6 F 12/22/24 10:50 Pulse Rate 107 H 12/22/24 10:50 Respiratory Rate 18 12/22/24 10:50 Blood Pressure 135/75 12/22/24 10:50 Pulse Oximetry 100 12/22/24 10:50 Oxygen Delivery Room Air 12/22/24 10:50 Reviewed. MDM - URI/Sore Throat MDM Narrative Medical decision making narrative: Differential diagnosis considered: Flores virus, strep pharyngitis, allergic rhinitis, upper respiratory tract infection, sinusitis, rhinosinusitis, nasopharyngitis. viral pharyngitis, otitis media, otitis externa, pneumonia, bronchitis, viral cough syndrome, viral syndrome, and influenza. Exam findings show no acute concerns or changes; patient is non-toxic appearing and is in no distress. Patient is appropriate for outpatient treatment and follow-up. Lab Data Attestation: I reviewed the patient's lab results. Critical Care Time Critical Care Time Critical Care Time: No Discharge Plan Discharge Clinical Impression: Asthma exacerbation Patient Disposition: Home, Self-Care Condition: Stable Instructions: Asthma (ED) Additional Instructions: Take medicines as directed. Visit your primary care doctor if: You have wheezing, shortness of breath, or a cough even if taking medicine to prevent attacks. You have thickening of sputum. Your sputum changes from clear or white to yellow, green, gutierrez, or bloody. You have any problems that may be related to the medicines you are taking (such as a rash, itching, swelling, or trouble breathing). You are using a reliever medicine more than 2 to 3 times per week. Visit the ER if: You are short of breath even at rest or when doing very little physical activity. You develop difficulty eating, drinking, or talking due to asthma symptoms. You have chest pain or you feel that your heart is beating fast. You are lightheaded, dizzy, faint or have bluish lips or fingernails. You have a fever or persistent symptoms for more than 2 to 3 days or symptoms suddenly get worse. You seem to be getting worse and are unresponsive to treatment during an asthma attack. Patient Language: [place] Prescriptions: New albuterol sulfate 2.5 mg /3 mL (0.083 %) solution for nebulization 2.5 mg inhalation Q4H PRN (Reason: shortness of breath or wheezing) Qty: 75 0RF methylprednisolone [Medrol (Jaime)] 4 mg tablets,dose pack See Rx Instructions .ROUTE .COMPLEX Qty: 21 0RF Rx Instructions: orally per package directions albuterol sulfate 90 mcg/actuation HFA aerosol inhaler 2 puff INHALATION QID PRN (Reason: shortness of breath or wheezing) Qty: 8.5 0RF No Action fexofenadine [[place]] 180 mg tablet 180 mg PO DAILY fluticasone propion-salmeterol [Advair HFA] 115-21 mcg/actuation HFA aerosol inhaler 2 puff inhalation BID Qty: 12 1RF albuterol sulfate 90 mcg/actuation HFA aerosol inhaler 1 puff inhalation Q4H PRN (Reason: shortness of breath or wheezing) Qty: 8.5 3RF Follow-up/Referrals: Jimmy Summers DO [Primary Care Provider] - Time of Disposition: 11:23
[2024-12-22] MEDS: IPRATROPIUM 0.5 MG/ALBUTEROL SULFATE 2.5 MG AMPUL.NEB 3 ML INHALATION (11:06)
[2024-12-22 11:18] LABS: EDCOVIDSCREEN Negative (Negative); EDINFLUASCREEN Negative (Negative); EDINFLUBSCREEN Negative (Negative)
== END 2024-12-22 11:30 | disposition home or self-care (01) ==
PROVIDERS: Emergency Provider Nurse Practitioner; PCP Internal Medicine
DX: J45.901 Unspecified asthma with (acute) exacerbation (principal); Z20.822 Contact with and (suspected) exposure to COVID-19
CPT/HCPCS: 87426; 87804; 99213; G0463